=== PATIENT | male | born 1950 | race Caucasian/White ===

== ENCOUNTER → 2017-11-17 | Outpatient (CLI) | payer OTHER ==
[~2017-11-17] MED LIST: ACET-1311 PO; CHOL4POW11 PO; CRFL PO; FOLI1TAB8 PO; GADAVIST IV PRN; MAGN400T6 PO; MOML PO; MULT-506 PO; MULT-878 PO; PANT40TA PO; VANC1CAP3 IV
--- NOTE | 2017-11-17 09:23 | DIAGNOSTIC IMAGING REPORT ---
R LOWER EXT NONJOINT COMBO CLINICAL HISTORY: L osteomyelitis. Nonhealing wound. TECHNIQUE: Multi axial MRI acquisition pre and post gadolinium enhancement COMPARISON STUDY: None FINDINGS: . Limited study technically due to severe patient motion. The appearance overall suggests a generalized cellulitis throughout all major soft tissue structures. Increased signal is noted in the mid to distal aspects of the second and third metatarsals. This is also seen at the distal aspect of the first metatarsal, and potentially the extreme distal aspects of the distal fourth and fifth metatarsal.. Altered signal of the phalanges of the second toe and proximal phalanx of the great toe are noted. Postcontrast images demonstrate moderate enhancement distal aspect of the first metatarsal. Also noted is mild postcontrast enhancement proximal phalanx of the great toe, all phalanges of the second toe, as well as the mid to distal aspects of the second third metatarsal. Slight postcontrast enhancement distal aspect of the fourth and slightly fifth metatarsal present. There is no evidence for drainable abscess or collection. IMPRESSION: 1. Extremely difficult study to interpret due to severe patient motion. 2. Generalized soft tissue cellulitis throughout the foot. 3. No evidence for drainable abscess or collection. 4. Findings suspect for osteomyelitis involving the distal aspect of the first metatarsal, mid and distal aspects of the second and third metatarsals, and the extreme distal aspects of the distal fourth and fifth metatarsal. 5. Study is suspicious for osteomyelitis involving the base of proximal phalanx great toe as well as all phalanges of the second toe. 6. All findings are superimposed upon generalized degenerative changes of the joint spaces throughout. The above report was generated using voice recognition software. It may contain grammatical, syntax or spelling errors. Electronically signed by: Rene Beavers M.D. 11/17/2017 9:22 AM Dictated Date/Time: 11/17/2017 9:12 AM
== END | disposition home or self-care (01) ==
LOC: C.MRI 07:40
PROVIDERS: ATTEND Physician Assistant
DX: L97.909 Non-pressure chronic ulcer of unspecified part of unspecified lower leg with unspecified severity (principal)

== ENCOUNTER → 2017-12-15 | Outpatient (CLI) | payer OTHER ==
[~2017-12-15] MED LIST changes: +ERTA1INJ IV; -GADAVIST IV PRN; +LINE1TAB6 PO; -VANC1CAP3 IV
== END | disposition home or self-care (01) ==
LOC: C.RDSM 19:22
PROVIDERS: ATTEND Physical Medicine & Rehabilitation Sports Medicine
DX: M79.671 Pain in right foot (principal); M79.672 Pain in left foot

== ENCOUNTER 2018-01-17 05:13 | Inpatient (IN) | payer OTHER ==
[2018-01-09 12:01] VITALS: BMI 19.0
--- NOTE | 2018-01-09 12:38 | PAT Medication Instructions ---
Service Date January 09, 2018. Current Home Medication List Acetaminophen (Tylenol), 650 MG PEG TID Folic Acid (Folvite), 1 TAB PEG BID Linezolid (Zyvox), 600 MG PEG DAILY Magnesium Hydroxide (Milk Of Magnesia), 30 ML PEG QD PRN for Constipation Magnesium Oxide (Mag-Ox), 400 MG PEG BID Mirtazapine Soltab (Remeron Soltab), 15 MG PEG HS Multivitamin (Multivitamin), 1 TAB PEG DAILY Pantoprazole (Protonix), 40 MG PEG DAILY Potassium Chloride (Micro-K Ext Rel), 10 MEQ PEG DAILY Saccharomyces Boulardii (Probiotic), 1 CAP PEG DAILY Sucralfate (Carafate), 10 ML PEG QID Medication Instructions For Your Scheduled Surgery - Hold the following medications the morning of surgery: Folic Acid (Folvite), 1 TAB PEG BID Magnesium Hydroxide (Milk Of Magnesia), 30 ML PEG QD PRN for Constipation Magnesium Oxide (Mag-Ox), 400 MG PEG BID Multivitamin (Multivitamin), 1 TAB PEG DAILY Potassium Chloride (Micro-K Ext Rel), 10 MEQ PEG DAILY Saccharomyces Boulardii (Probiotic), 1 CAP PEG DAILY Sucralfate (Carafate), 10 ML PEG QID - The following medications may be taken the morning of surgery with a sip of water: Acetaminophen (Tylenol), 650 MG PEG TID (if needed, can be taken up to four hours before surgery) Linezolid (Zyvox), 600 MG PEG DAILY Pantoprazole (Protonix), 40 MG PEG DAILY - Take the following medications as scheduled the night before surgery: Acetaminophen (Tylenol), 650 MG PEG TID Folic Acid (Folvite), 1 TAB PEG BID Magnesium Hydroxide (Milk Of Magnesia), 30 ML PEG QD PRN for Constipation (if needed) Magnesium Oxide (Mag-Ox), 400 MG PEG BID Mirtazapine Soltab (Remeron Soltab), 15 MG PEG HS Sucralfate (Carafate), 10 ML PEG QID With the exception of morning meds listed, nothing via PEG tube after midnight If you have any questions please call us at [phone] or [phone] or [phone]
[2018-01-09 14:19] LABS: BASO % 0.5 %; BASO ABS # 0.03 K/uL (0-0.2); EOS % 6.4 %; EOS ABS # 0.41 K/uL (0-0.5); HEMATOCRIT 22.1 % (42-52); HEMOGLOBIN 7.3 g/dL (14.0-18.0); IG# 0.01 K/uL (0.00-0.02); LYMPH % 16.6 %; LYMPH ABS # 1.06 K/uL (1.2-3.4); MEAN CELL VOLUME 92.9 fL (80-100); MEAN CORPUSCULAR HEMOGLOBIN 30.7 pg (25-34); MEAN PLATELET VOLUME 8.8 fL (7.4-10.4); MONO % 11.3 %; MONO ABS # 0.72 K/uL (0.11-0.59); NEUT ABS # 4.14 K/uL (1.4-6.5); PLATELET COUNT 132 K/uL (130-400); RED CELL DISTRIBUTION WIDTH CV 20.6 % (11.5-14.5); RED CELL DISTRIBUTION WIDTH SD 68.2 fL (36.4-46.3); WHITE BLOOD COUNT 6.37 K/uL (4.8-10.8)
[2018-01-09 14:29] LABS: CREATININE 1.02 mg/dl (0.60-1.40); POTASSIUM 5.1 mmol/L (3.5-5.1)
[2018-01-09 14:32] LABS: PTT PATIENT 28.7 SECONDS (21.0-31.0)
--- NOTE | 2018-01-10 09:43 | History and Physical ---
History & Physical Date of Service January 10, 2018. History & Physical HISTORY & PHYSICAL Name: RICHIE ANNE : 1950 Date of Admission 01/17/2018 DATE OF SURGERY: 01/17/2018 ATTENDING PHYSICIAN: Dr. Vargas CHIEF COMPLAINT: Right foot wound/osteomyelitis. HISTORY OF PRESENT ILLNESS: The patient is here today for preoperative history and physical. He was seen and evaluated by Dr. Vargas. He is a poor historian and currently living at [facility]. He was referred to Dr. Vargas by the [facility] for evaluation of his right foot. He does not know exactly how long he has had a problem with his right foot. He does not think that he has had any injury. He states that it has been ongoing for quite some time. He denies any diabetes or peripheral vascular disease. He states that he has just had this for a long time. He is currently on a PEG tube as well as has an indwelling Fields catheter. He states that he has been going to the outpatient wound clinic for dressing changes. He is here for evaluation with Dr. Vargas. He did have an evaluation by V[facility] Surgery, and they did diagnose him with peripheral arterial disease and osteomyelitis. Surgical intervention was recommended by them. He is here for evaluation with Dr. Vargas, and his surgical intervention was discussed. He has agreed to proceed with surgery. He is scheduled for a right foot transmetatarsal amputation versus below-knee amputation with Dr. Vargas at the [facility] on January 17, 2018. PAST MEDICAL HISTORY: 1. Osteomyelitis, right foot. 2. Acute kidney failure. 3. Dysphagia. 4. Generalized weakness. 5. Hypertension. 6. Peripheral vascular disease. 7. Esophageal obstruction. 8. Nicotine dependence with chewing tobacco. 9. Gastroesophageal reflux disease without esophagitis. 10. Major depressive disorder. 11. Anxiety disorder. 12. Iron-deficiency anemia. 13. Benign prostatic hyperplasia. 14. Ambulatory dysfunction. 15. History of enterocolitis due to Clostridium difficile. 16. Pressure sores of his left heel, sacral region, and right foot. 17. Adult failure to thrive. 18. Cachexia. 19. History of pneumonia. 20. Indwelling PEG tube and Fields catheter. CURRENT MEDICATIONS: 1. Carafate 1 gram per 10 mL, take 10 mL via PEG tube 3 times a day. 2. Daily vitamin via PEG tube daily. 3. Ertapenem 1 gram IV daily. 4. Folic acid 1 tab by mouth twice daily. 5. Jevity 1.5 calorie liquid, infuse at 60 mL an hour, on at 8 p.m., off at 6 a.m. daily via PEG tube. 6. Linezolid 600 mg 1 tablet via PEG tube twice a day. 7. Mag-Ox 400 mg via PEG tube twice daily. 8. Mirtazapine 15 mg 1 tablet via PEG tube at bedtime daily for depression. 9. Protonix 40 mg via PEG tube daily. 10. Saccharomyces boulardii 250 mg 1 capsule via PEG tube twice daily x8 weeks , started on December 01, 2017, ends on January 23, 2018. 11. Tylenol 325 mg 2 tablets via PEG tube 3 times a day. 12. Milk of magnesia 30 mL by mouth as needed for constipation. ALLERGIES: He has no known drug allergies. SOCIAL HISTORY: Currently resides at [facility]. He denies any tobacco, alcohol, or drug use. He states that he does get around with a wheelchair. He is able to ambulate occasionally. FAMILY HISTORY: unobtainable as the patient is a poor historian. REVIEW OF SYSTEMS: He denies any recent cough, cold, fevers, chills, flu-like symptoms. He denies any chest pain or shortness of breath. Denies any numbness or tingling. He denies any abdominal pain. He says he occasionally gets some diarrhea but nothing recently. Denies any urinary symptoms. Denies any bleeding or clotting disorders. PHYSICAL EXAM: General: He is alert and oriented x3. He is in no acute distress. He is resting on the table comfortably. He has normal mood and affect. Height is 6 feet, weight is 144 pounds. HEENT: Head is atraumatic, normocephalic. Eyes: Extraocular movements intact. Pupils equal, round, and reactive to light. Sclerae are normal. Hearing is grossly normal. TMs are clear with normal light reflex. Nose, nares are patent bilaterally. Oropharynx is clear. Mucous membranes moist. Poor dentition with missing teeth and what appear to be cavities. No abscesses. Uvula midline. Neck: Supple. No lymphadenopathy. Nontender to palpation. Heart is regular rate and rhythm. Normal S1, S2. No murmurs appreciated. Lungs are clear to auscultation bilaterally. Abdomen is soft, nontender, nondistended. PEG tube is visible. He has a PICC line in his right upper extremity. Exam of his right foot, ankle dorsiflexion is to neutral just beyond, both with the knee flexed and extended. He has about a degree of flexion contracture of his knee, can bend to about 120 degrees. He is markedly thin. Pedal pulses are not palpable. There are scars of varying degrees of healing including over the base of the 5th metatarsal which appear to be superficial and over the distal portion of the 5th metatarsal plantarly and dorsally over the medial foot. He has a large 2 cm ulceration in the central forefoot with exposed bone. He reports intact sensation. His capillary refill looks like less than 2 seconds. He can flex and extend with normal or nearly normal strength. RADIOLOGY IMAGES: X-rays 3 views of both feet are obtained. The left foot looks normal except for vascular calcifications. There is no fracture. Right foot shows osteomyelitis of the 2nd and 3rd tarsometatarsal articulations, radiolucency of the 1st, 4th, and 5th toes as well which could be related to osteomyelitis or vascular calcification. No fracture noted. MRI of his right foot shows osteomyelitis of the 2nd and 3rd toes and probable osteomyelitic changes of the toes 1, 4, and 5. IMPRESSION: Right foot osteomyelitis. PLAN: The patient is scheduled for right foot transmetatarsal amputation versus below-knee amputation with Dr. Vargas at the [facility] on January 17, 2018. Risks and complications of surgery were explained to the patient, include but are not limited to infection, pain, bleeding, scarring, nerve and blood vessel damage, wound problems, weakness, stiffness, incomplete relief of symptoms, blood clots, embolisms, heart attack, stroke, and . All questions were answered. Informed consent was obtained today. We will have him see preadmission testing later today which we will obtain a preoperative CBC, sed rate, CRP, BMP, and EKG. He should continue the IV antibiotics. He can stop going to the [facility] but continue daily dressing changes of his right foot. He can weight bear as tolerated, use the postop shoe to assist with ambulation. He should be n.p.o. after midnight the night before surgery. Instructions were provided to the [facility] to follow for the use of CHG cloths as well as instructions on calling the day before to get the surgery arrival time. All questions were answered today. He will be admitted postoperatively. We will consult the hospitalist for medical management during his inpatient stay. He will most likely return to [facility] after surgery. He will also probably need an infectious disease consult while an inpatient to further manage his antibiotics. All questions were answered today. He knows to call with any further problems, questions, or concerns.
[~2018-01-17] VITALS: Ht 182.9 cm; Wt 65.1 kg
[~2018-01-17 05:13] MED LIST changes: +ACET-1311 PEG; -ACET-1311 PO; -CHOL4POW11 PO; +CRFL PEG; -CRFL PO; -ERTA1INJ IV; +FOLI1TAB8 PEG; -FOLI1TAB8 PO; +LINE1TAB6 PEG; -LINE1TAB6 PO; +MAGN400T6 PEG; -MAGN400T6 PO; +MIRT15TA2 PEG; +MOML PEG; -MOML PO; +MULT-506 PEG; -MULT-506 PO; -MULT-878 PO; +PANT40TA PEG; -PANT40TA PO; +POTA10CA28 PEG; +SACC250C11 PEG
[2018-01-17 05:47] LABS: HEMATOCRIT 31.2 % (42-52); HEMOGLOBIN 10.3 g/dL (14.0-18.0); RED CELL DISTRIBUTION WIDTH CV 19.3 % (11.5-14.5); RED CELL DISTRIBUTION WIDTH SD 64.2 fL (36.4-46.3); WHITE BLOOD COUNT 8.82 K/uL (4.8-10.8)
[2018-01-17] MEDS ORDERED: CEFAZOLIN 1000MG IV PUSH 7.5 ML IV SCH (06:00)
[2018-01-17 06:02] VITALS: BP 128/99; PULSE 67; TEMP 36.6; O2SAT 98; BMI 19.0
[2018-01-17] MEDS ORDERED: NUTR-673 GT (06:03)
[2018-01-17 06:09] LABS: CALCIUM 8.6 mg/dl (8.5-10.1); CREATININE 0.93 mg/dl (0.60-1.40); POTASSIUM 4.3 mmol/L (3.5-5.1)
[2018-01-17 06:16] LABS: MEAN PLATELET VOLUME 8.7 fL (7.4-10.4); PLATELET COUNT 99 K/uL (130-400)
[2018-01-17] MEDS ORDERED: [UNRECOGNIZED DRUG - OTHER] IV (06:17)
[2018-01-17] MEDS ORDERED: FENTANYL CITRATE INJ 50 MCG/1 ML 2 ML VIAL ONE ×2 (06:24→14:11)
[2018-01-17] MEDS ORDERED: MIDAZOLAM HCL 1 MG/ML 2ML VIAL ONE ×2 (06:25→14:11)
[2018-01-17] MEDS ORDERED: PROPOFOL IV EMULSION 10 MG/ML 20 ML VIAL ONE ×2 (06:29→14:11)
[2018-01-17] MEDS ORDERED: LIDOCAINE HCL 2% 2 ML VIAL (20MG/ML) ONE ×2 (06:29→14:11)
[2018-01-17] MEDS ORDERED: CEFAZOLIN SOD 1000MG/7.5 ML IV PUSH ONE (06:44)
--- NOTE | 2018-01-17 06:44 | History & Physical Bridge Note ---
H&P Re-Evaluation Bridge Note: I have examined the patient, reviewed the History & Physical and in the interval since the performance of the History & Physical I have noted the following changes of clinical significance: AM labs acceptable. plts 97k, hct 30.spoke w dr kee yesterday and pt optimized and acceptable.No changes noted
[2018-01-17] MEDS ORDERED: LIDOCAINE HCL 1% 20 ML VIAL ONE ×2 (06:58→14:04)
[2018-01-17] MEDS ORDERED: BUPIVACAINE 0.5 % 5 MG/1 ML MPF 30ML VIAL ONE ×2 (06:59→14:06)
[2018-01-17] MEDS ORDERED: EpINEphrine INJ 1MG/ML AMP 1 MG/ML AMP ONE (07:00)
[2018-01-17] MEDS ORDERED: BACITRACIN 50000 UNIT VIAL ONE ×2 (07:00→14:09)
[2018-01-17] MEDS ORDERED: EpINEphrine HCL INJ 1 MG/ML 1ML SYRINGE ONE (14:07)
[2018-01-17] MEDS ORDERED: GLYCOPYRROLATE INJ 0.2 MG/ML VIAL ONE (14:11)
[2018-01-17] MEDS ORDERED: DEXAMETHASONE SOD INJ 4 MG/ML VIAL ONE (14:11)
[2018-01-17] MEDS ORDERED: SUCCINYLCHOLINE CHLORIDE 20 MG/ML 10 ML VIAL IV ONE (14:11)
[2018-01-17] MEDS ORDERED: NEOSTIGMINE METHYLSULFATE 5 MG/5 ML SYR ONE (14:11)
[2018-01-17] MEDS ORDERED: ONDANSETRON INJ 2 MG/ML 2 ML VIAL ONE (14:11)
[2018-01-17] MEDS ORDERED: EpHEDrine SULFATE INJ 50 MG/ML AMP ONE (14:11)
[2018-01-17] MEDS ORDERED: PHENYLEPHRINE HCL INJ 10 MG/ML VIAL ONE (14:11)
[2018-01-17] MEDS ORDERED: POVIDONE-IODINE OP SOLN 30 ML BTL ONE (14:58)
[2018-01-17] MEDS ORDERED: ONDANSETRON INJ 2 MG/ML 2 ML VIAL IV PRN ×2 (16:30→17:00)
[2018-01-17] MEDS ORDERED: ATROPINE SULFATE 0.1 MG/ML 5ML SYR IV PRN (16:30)
[2018-01-17] MEDS ORDERED: HYDROmorphone INJ 2 MG/ML SYR/VIAL IV PRN (16:30)
[2018-01-17] MEDS ORDERED: LABETALOL HCL IV 5 MG/ML 20ML IV PRN (16:30)
--- NOTE | 2018-01-17 16:38 | [facility] Post Operative Brief Note ---
Immediate Operative Summary Operative Date January 17, 2018. Pre-Operative Diagnosis right foot osteomyelitis Post-Operative Diagnosis right foot osteomyelitis Procedure(s) Performed transmetatasrsal amputation Surgeon Dr. Guido Vargas Diversional Therapist'S Assistant Surgeon(s) Kemar Renee-Fellow Estimated Blood Loss 50 Findings Consistent with Post-Op Diagnosis Specimens A: Right foot metatarsals, bone and tissue Micro- #1:Right foot tissue swap-Culture and sensitivity, gram stain, anaerobic, aerobic #2: Right foot bone-Culture and sensitivity, gram stain, anaerobic, aerobic Drains None Anesthesia Type General Complication(s) none Disposition Accompanied Pt To Recover: no Disposition: Recovery Room / PACU
--- NOTE | 2018-01-17 16:58 | [facility] Operative Report ---
Operative Report Operative Date January 17, 2018. Pre-Operative Diagnosis right foot osteomyelitis Post-Operative Diagnosis right foot osteomyelitis Procedure(s) Performed transmetatasrsal amputation Surgeon Dr. Guido Vargas Rider Ticket Worker Surgeon(s) Kemar Renee-Fellow Estimated Blood Loss 50ml Findings Osteomyelitis of the second and third metatarsals. Multiple plantar ulcerations. Specimens A: Right foot metatarsals, bone and tissue Micro- #1:Right foot tissue swap-Culture and sensitivity, gram stain, anaerobic, aerobic #2: Right foot bone-Culture and sensitivity, gram stain, anaerobic, aerobic Drains None Anesthesia Type General Complication(s) none Disposition no Recovery Room / PACU Indications Patient's a 67-year-old gentleman with malnourishment and general debilitation. He currently lives in a fpc. The ulceration on the plantar aspect of his right foot for an unknown but chronic length of time. Radiographs demonstrate bony destruction consistent with osteomyelitis. Preoperative consultation has been obtained with Dr. Mack to determine appropriate amputation level. Circulation at this point seems to be appropriate to support a transmetatarsal amputation. The patient is also consented for a below-knee amputation. He has been seen by his medical doctor Dr. Pathak and also is a patient in the ID clinic. He remains on chronic antibiotics. He has a PEG tube. Description of Procedure Informed consent obtained. Patient identified as Brenden mueller. He identified the operative site as the right foot. I marked with my initials. Preop surgical timeout was performed. Preop dose of IV antibiotics was given. He is also on chronic antibiotics. He was taken to the operating room positioned supine on the operating room table. A tourniquet was applied to the right thigh. The right leg was pre-scrub and then prepped and draped in the usual sterile fashion with Betadine. He had a small 1 cm ulceration at the base of the fifth metatarsal. During the surgery this was debrided and found to be full-thickness through the skin and down to the fascia but not through the fascia there was no exposed bone and had good granulation around the margins. There was a similar ulcer at the head of the fifth metatarsal. There were 2 large ulcers 1 over the second and third metatarsals plantarly about 2-3 cm in diameter with exposed bone. There is another one more medial over the first metatarsal head which was partial thickness down through the dermis into the deeper tissues but without exposed bone about 2 cm in diameter. The patient did not have palpable pulses. DVT prophylaxis with foot pumps. Postoperatively we may consider placing him on something like Lovenox. The patient was scheduled for the first thing this morning however he used chewing tobacco in his surgery had to be delayed 6 hours. He also has chronic anemia. He required 2 units of red blood cells at his fpc preoperatively. His hematocrit was 10 platelet count 97. I spoke with Dr. Pathak and it was felt that he was appropriate to proceed. The limb was exsanguinated with gravity and the tourniquet inflated to 250 mmHg. A fishmouth type incision was made just proximal to the ulcers on the plantar aspect of the foot and just proximal to the webspace dorsally. A full- thickness flap was created dorsally down to the level of the extensor tendons and then raised proximally. Fluoroscopic guidance was utilized then to amputate the first metatarsal at about its midportion and then each of the subsequent metatarsals were shortened by 2-3 mm. I went back and recut 2 more millimeters off of the first metatarsal but otherwise he had a good cascade. Fluoroscopic guidance was utilized and access representative images were obtained. There was a significant bleeding of the tissues which seem to be better after the tourniquet was let down. The dorsalis pedis artery was cauterized however this required a double ligation with 2-0 silk suture. Otherwise meticulous hemostasis was achieved with electrocautery and direct pressure. The bones were beveled around the margins and did not have any sharp spicules or protuberances. The plantar skin flap was debrided using a rongeur removing any unhealthy tissue. After the metatarsals had been resected the amputation was completed working from the plantar aspect. The toes are then sent for specimen. Culture swab of the plantar ulcer was obtained and bone from the second and third metatarsals was also sent for culture. The extensor tendons were amputated just proximal to the bone resections. The flexor tendons were drawn into the wound and amputated as far proximal as possible. The plantar digital nerves and arteries were cauterized and amputated as far proximal as possible as encountered. The tourniquet was let down after about 30 minutes of inflation. Betadine lavage was performed followed by pulsed lavage. The skin flaps fit perfectly. The plantar flap was brought up and using a combination of 2-0 nylon and 0 Prolene with simple stitches and near far far near stitches the closure was performed in a tension-free fashion. 20 cc of a mixture of 0.5% Marcaine and 1 % lidocaine were injected sural saphenous superficial and deep peroneal and posterior tibial nerve blocks. It was cleaned with wet and dry sponges. Xeroform 4 x 4's multiple ABDs including padding of the heel were applied followed by loosely applied cast padding and a compressive Tristan wrap with care to avoid any pressure on the skin. Patient is awake from anesthesia without difficulty and taken to the recovery room in stable condition. The resected forefoot was sent for specimen. Cultures were as mentioned above. Counts were correct in the case. Blood loss was approximately 50 cc. At the conclusion operation there is no unavailable to speak to. Patient will be nonweightbearing. Medicine and ID will be consulted to assist in his management along with nutrition. I attest to the content of the Intraoperative Record and any orders documented therein. Any exceptions are noted below.
[2018-01-17] MEDS ORDERED: MAGNESIUM HYDROXIDE SUSP 30 ML UDC PEG PRN (17:00)
[2018-01-17] MEDS ORDERED: ACETAMINOPHEN 325 MG TAB PEG PRN (17:00)
[2018-01-17] MEDS ORDERED: DiphenhydrAMINE HCL 50 MG/ML VIAL IV PRN (17:00)
[2018-01-17] MEDS ORDERED: METOCLOPRAMIDE HCL INJ 5 MG/ML 2 ML VIAL IV PRN (17:00)
--- NOTE | 2018-01-17 17:03 | Anesthesiology Progress Note ---
Anesthesia Post Op Note Date & Time January 17, 2018 at 17:03 Vital Signs Pain Intensity: 0 Vital Signs Past 12 Hours Date Time Temp Pulse Resp B/P (MAP) Pulse Ox O2 Delivery O2 Flow Rate FiO2 01/17/18 06:02 36.6 67 18 128/99 98 Room Air Notes Mental Status: alert / awake / arousable, participated in evaluation Pt Amnestic to Procedure: Yes Nausea / Vomiting: adequately controlled Pain: adequately controlled Airway Patency, RR, SpO2: stable & adequate BP & HR: stable & adequate Hydration State: stable & adequate Anesthetic Complications: no major complications apparent
[2018-01-17] MEDS ORDERED: MoRPHine SULFATE 4 MG/ML 1 ML CARP\\VIAL IV PRN (17:15)
[2018-01-17] MEDS ORDERED: OXYCODONE HCL IR 5 MG TAB (IMMEDIATE RELEASE) GT PRN (17:15)
[2018-01-17 17:57] LABS: HEMATOCRIT 26.3 % (42-52); HEMOGLOBIN 8.7 g/dL (14.0-18.0); MEAN CORPUSCULAR HEMOGLOBIN 30.1 pg (25-34); MEAN CORPUSCULAR HGB CONC 33.1 g/dl (32-36); RED CELL DISTRIBUTION WIDTH CV 19.1 % (11.5-14.5); RED CELL DISTRIBUTION WIDTH SD 63.7 fL (36.4-46.3); WHITE BLOOD COUNT 9.25 K/uL (4.8-10.8)
[2018-01-17 18:04] LABS: INR 1.1 (0.9-1.1)
[2018-01-17 18:14] LABS: CALCIUM 8.6 mg/dl (8.5-10.1); CREATININE 0.86 mg/dl (0.60-1.40); MEAN PLATELET VOLUME 8.4 fL (7.4-10.4); PLATELET COUNT 94 K/uL (130-400)
[2018-01-17 18:15] VITALS: BP 94/57; PULSE 86; TEMP 36.3; O2SAT 100; O2SAT 98
[2018-01-17 18:15] LABS: ALBUMIN 2.3 gm/dl (3.4-5.0); CALCIUM 8.5 mg/dl (8.5-10.1); CREATININE 0.88 mg/dl (0.60-1.40); POTASSIUM 3.6 mmol/L (3.5-5.1); POTASSIUM 3.7 mmol/L (3.5-5.1)
[2018-01-17 18:18] LABS: TOTAL PROTEIN 5.9 gm/dl (6.4-8.2)
[2018-01-17 19:15] VITALS: BP 102/66; PULSE 97; TEMP 36.5; O2SAT 97
--- NOTE | 2018-01-17 19:34 | DIAGNOSTIC IMAGING REPORT ---
INTRAOPERATIVE RIGHT FOOT 3 VIEWS CLINICAL HISTORY: RT TRANSMETATARSAL AMP COMPARISON STUDY: 12/15/2017 FINDINGS: 3 intraoperative fluoroscopic spot images are provided for interpretation. 18 seconds of fluoroscopic time was utilized. There are postsurgical changes of a first through fifth transmetatarsal amputation. Extensive vascular calcifications are evident. IMPRESSION: Postsurgical changes of a transmetatarsal amputation Electronically signed by: Timoteo Ryan M.D. 01/17/2018 7:33 PM Dictated Date/Time: 01/17/2018 7:32 PM
[2018-01-17 20:15] VITALS: BP 89/48; PULSE 91; TEMP 36.4; O2SAT 99
[2018-01-17] MEDS ORDERED: FIBERSOURCE HN 1000ML BAG GT SCH (21:00)
[2018-01-17] MEDS: MAGNESIUM OXIDE 400 MG TAB PEG SCH (21:26)
[2018-01-17] MEDS: DOCUSATE SODIUM 100 MG/10 ML UDC GT SCH (21:26)
[2018-01-17] MEDS: MIRTAZAPINE SOLTAB 15 MG PO SCH (21:27)
[2018-01-17] MEDS: SUCRALFATE 1 GM/10 ML UDC PEG SCH (21:27)
[2018-01-17] MEDS: D5W AND 1/2NSS 1,000 ML IV SCH (21:34)
[2018-01-17 23:52] VITALS: BP 75/36; PULSE 85; TEMP 36.8; O2SAT 100
--- NOTE | 2018-01-18 00:29 | Medical Consult ---
Consultation Date of Consultation: January 18, 2018. Attending Physician: Guido Vargas M.D. Reason for Consultation: Post op Medical Management History of Present Illness 67 years old male with past medical history of right foot osteomyelitis, hypertension, peripheral vascular disease, ambulatory dysfunction, BPH, chronic indwelling Brandon catheter, status post right foot transmetatarsal amputation for right foot osteomyelitis by Dr. Vargas. [facility] hospitalist was consult for medical management. Patient is resting in bed with no distress. He said his pain is under control. Denies any chest pain, palpitation, dizziness, fever, shortness of breath and chills. Past Medical/Surgical History PAST MEDICAL HISTORY: 1. Osteomyelitis, right foot. 2. Acute kidney failure. 3. Dysphagia. 4. Generalized weakness. 5. Hypertension. 6. Peripheral vascular disease. 7. Esophageal obstruction. 8. Nicotine dependence with chewing tobacco. 9. Gastroesophageal reflux disease without esophagitis. 10. Major depressive disorder. 11. Anxiety disorder. 12. Iron-deficiency anemia. 13. Benign prostatic hyperplasia. 14. Ambulatory dysfunction. 15. History of enterocolitis due to Clostridium difficile. 16. Pressure sores of his left heel, sacral region, and right foot. 17. Adult failure to thrive. 18. Cachexia. 19. History of pneumonia. 20. Indwelling PEG tube and Brandon catheter. Social History Smoking Status: Never Smoker Drug Use: none Marital Status: single Occupation Status: retired Allergies Coded Allergies: No Known Allergies (Unverified , 01/17/18) Current Inpatient Medications Current Inpatient Medications Medications (Trade) Dose Ordered Sig/Pola Route Start Time Stop Time Status Last Admin Dose Admin Acetaminophen (Tylenol Tab) 650 mg Q6H PRN PEG 01/17/18 17:00 02/16/18 16:59 Diphenhydramine HCl (Benadryl Inj) 25 mg Q8 PRN IV 01/17/18 17:00 02/16/18 16:59 Metoclopramide HCl (Reglan Inj) 10 mg Q6H PRN IV 01/17/18 17:00 02/16/18 16:59 Ondansetron HCl (Zofran Inj) 4 mg Q6H PRN IV 01/17/18 17:00 02/16/18 16:59 Docusate Sodium (coLACE SYRUP) 100 mg BID GT 01/17/18 21:00 6/8/18 20:59 01/17/18 21:26 100 MG Dextrose/Sodium Chloride 1,000 ml @ 75 mls/hr [id number] IV 01/17/18 19:50 02/16/18 19:49 01/17/18 21:34 75 MLS/HR Enteral Nutritional Formula (Fibersource Hn) 1,000 ml QPM GT 01/17/18 21:00 02/16/18 20:59 01/17/18 21:27 1,000 ML Folic Acid (Folvite Tab) 1 mg BID PEG 01/17/18 21:00 02/16/18 20:59 01/17/18 21:26 1 MG Linezolid (Zyvox Tab) 600 mg DAILY GT 01/18/18 09:00 03/01/18 08:59 Magnesium Hydroxide (Milk Of Magnesia Susp) 30 ml QD PRN PEG 01/17/18 17:00 02/16/18 16:59 Magnesium Oxide (Mag-Ox Tab) 400 mg BID PEG 01/17/18 21:00 02/16/18 20:59 01/17/18 21:26 400 MG Mirtazapine (Remeron Solutab) 15 mg HS PO 01/17/18 21:00 02/16/18 20:59 01/17/18 21:27 15 MG Lansoprazole (Prevacid Solutab) 30 mg DAILY GT 01/18/18 09:00 02/17/18 08:59 Potassium Chloride (Mandy Ciel Elix) 10 meq DAILY GT 01/18/18 09:00 02/17/18 08:59 Sucralfate (Carafate Susp) 1 gm QID PEG 01/17/18 21:00 02/16/18 20:59 01/17/18 21:27 1 GM Oxycodone HCl (Roxicodone Immediate Rel Tab) 1 TABLET FOR PAIN RATING... Q4H PRN GT 01/17/18 17:15 01/31/18 17:14 Morphine Sulfate (MoRPHine SULFATE INJ) 2 mg for pain less than ... Q4HWA PRN IV 01/17/18 17:15 01/31/18 17:14 Ertapenem 1 gm/ Sodium Chloride 50 ml @ 100 mls/hr DAILY IV 01/18/18 09:00 6/21/18 08:59 Review of Systems Constitutional: No fever, No chills Eyes: No discharge ENT: No nasal symptoms, No sore throat Respiratory: No cough, No sputum, No shortness of breath Cardiovascular: No chest pain, No palpitations Abdomen: No pain, No nausea, No vomiting Musculoskeletal: No calf pain Genitourinary - Male: + problem reported (brandon catheter in place), No hematuria Neurologic: No vertigo Psychiatric: No substance abuse Hematologic / Lymphatic: No abnormal bleeding/bruising Integumentary: No rash, No itch Physical Exam Date Time Temp Pulse Resp B/P (MAP) Pulse Ox O2 Delivery O2 Flow Rate FiO2 01/17/18 23:52 36.8 85 14 75/36 (49) 100 Room Air 01/17/18 20:15 36.4 91 16 89/48 (62) 99 Room Air 01/17/18 19:25 Nasal Cannula 2.0 01/17/18 19:15 36.5 97 17 102/66 (78) 97 Room Air 01/17/18 18:15 98 Nasal Cannula 2.0 01/17/18 18:15 36.3 86 18 94/57 (69) 100 Nasal Cannula 2.0 01/17/18 17:55 79 14 96/45 100 Nasal Cannula 2 01/17/18 17:40 77 15 87/49 100 Nasal Cannula 2 01/17/18 17:25 36.1 83 16 87/49 100 Nasal Cannula 2 01/17/18 17:15 83 17 98/53 100 Nasal Cannula 2 01/17/18 17:05 85 20 92/52 100 Nasal Cannula 2 01/17/18 16:55 85 16 86/48 100 Oxymask 10 01/17/18 16:45 36.0 88 13 125/59 100 Oxymask 10 01/17/18 06:02 36.6 67 18 128/99 98 Room Air General Appearance: no apparent distress Head: normocephalic, atraumatic Eyes: EOMI ENT: normal ENT inspection Neck: no JVD, trachea midline Respiratory/Chest: no respiratory distress, no accessory muscle use Cardiovascular: regular rate, rhythm, no JVD Abdomen/GI: normal bowel sounds, non tender Back: no CVA tenderness Extremities/Musculoskelatal: no calf tenderness, + pertinent finding (Right foot amputation, wrap with dressing) Neurologic/Psych: alert, normal mood/affect Skin: warm/dry, no rash Laboratory Results Last 24 Hours Test 01/17/18 05:33 01/17/18 17:40 White Blood Count 8.82 K/uL 9.25 K/uL Red Blood Count 3.43 M/uL 2.89 M/uL Hemoglobin 10.3 g/dL 8.7 g/dL Hematocrit 31.2 % 26.3 % Mean Corpuscular Volume 91.0 fL 91.0 fL Mean Corpuscular Hemoglobin 30.0 pg 30.1 pg Mean Corpuscular Hemoglobin Concent 33.0 g/dl 33.1 g/dl RDW Standard Deviation 64.2 fL 63.7 fL RDW Coefficient of Variation 19.3 % 19.1 % Platelet Count 99 K/uL 94 K/uL Mean Platelet Volume 8.7 fL 8.4 fL Platelet Estimate DECREASED Sodium Level 134 mmol/L 136 mmol/L Potassium Level 4.3 mmol/L 3.7 mmol/L Chloride Level 99 mmol/L 102 mmol/L Carbon Dioxide Level 31 mmol/L 27 mmol/L Anion Gap 4.0 mmol/L 7.0 mmol/L Blood Urea Nitrogen 18 mg/dl 16 mg/dl Creatinine 0.93 mg/dl 0.88 mg/dl Est Creatinine Clear Calc Drug Dose 71.6 ml/min 75.7 ml/min Estimated GFR () 98.1 103.0 Estimated GFR (Non- 84.6 88.9 BUN/Creatinine Ratio 19.0 17.6 Random Glucose 111 mg/dl 102 mg/dl Calcium Level 8.6 mg/dl 8.5 mg/dl Prothrombin Time 11.5 SECONDS Prothromb Time International Ratio 1.1 Total Bilirubin 0.7 mg/dl Direct Bilirubin 0.2 mg/dl Aspartate Amino Transf (AST/SGOT) 13 U/L Alanine Aminotransferase (ALT/SGPT) 14 U/L Alkaline Phosphatase 107 U/L Total Protein 5.9 gm/dl Albumin 2.3 gm/dl Globulin 3.6 gm/dl Albumin/Globulin Ratio 0.6 Assessment & Plan Right foot osteomyelitis S/P right foot transmetatarsal amputation by Dr. Vargas Pain control as per ortho Monitor H/H Incentive spirometry On Invanz ID consulted HTN Not on any BP med BP in the the low side Monitor BP Continue IVF Anemia Acute blood loss due to post op Hgb 8.7 Monitor H/H DVT px as per Ortho CODE STATUS FULL CODE
[2018-01-18 03:28] VITALS: BP 86/43; PULSE 86; TEMP 37; O2SAT 99
[2018-01-18 06:53] VITALS: BP 95/47; PULSE 93; TEMP 37.2; O2SAT 99
[2018-01-18 06:55] LABS: HEMATOCRIT 21.6 % (42-52); HEMOGLOBIN 7.3 g/dL (14.0-18.0); MEAN CELL VOLUME 91.1 fL (80-100); MEAN CORPUSCULAR HEMOGLOBIN 30.8 pg (25-34); MEAN CORPUSCULAR HGB CONC 33.8 g/dl (32-36); RED CELL DISTRIBUTION WIDTH SD 63.3 fL (36.4-46.3); WHITE BLOOD COUNT 10.22 K/uL (4.8-10.8)
[2018-01-18 07:03] LABS: INR 1.1 (0.9-1.1)
[2018-01-18 07:24] LABS: MEAN PLATELET VOLUME 8.2 fL (7.4-10.4); PLATELET COUNT 94 K/uL (130-400)
--- NOTE | 2018-01-18 08:42 | Orthopedic Progress Note ---
Orthopedic Progress Note Date of Service January 18, 2018. Subjective Post OP Day: 1 Reports: feeling well, Denies: complaints, chest pain, SOB, nausea / vomiting, light headedness, calf pain Additional Notes: Denies pain in right foot; propped up in bed, eating breakfast. Nursing reports that she was in there this morning, he had unhooked his IV, leaking all over the floor. He had his bed elevated as high as it could go and leaning over the edge. Objective calves soft nontender, dressing C/D/I, A&O x3 Right foot dressings intact, encouraged elevation, heel off of bed. Dressings left in place. Date Time Temp Pulse Resp B/P (MAP) Pulse Ox O2 Delivery O2 Flow Rate FiO2 01/18/18 06:53 37.2 93 15 95/47 (63) 99 Room Air 01/18/18 03:28 37.0 86 14 86/43 (57) 99 Room Air 01/18/18 00:10 Room Air 01/17/18 23:52 36.8 85 14 75/36 (49) 100 Room Air 01/17/18 20:15 36.4 91 16 89/48 (62) 99 Room Air 01/17/18 19:25 Nasal Cannula 2.0 01/17/18 19:15 36.5 97 17 102/66 (78) 97 Room Air 01/17/18 18:15 98 Nasal Cannula 2.0 01/17/18 18:15 36.3 86 18 94/57 (69) 100 Nasal Cannula 2.0 01/17/18 17:55 79 14 96/45 100 Nasal Cannula 2 01/17/18 17:40 77 15 87/49 100 Nasal Cannula 2 01/17/18 17:25 36.1 83 16 87/49 100 Nasal Cannula 2 01/17/18 17:15 83 17 98/53 100 Nasal Cannula 2 01/17/18 17:05 85 20 92/52 100 Nasal Cannula 2 01/17/18 16:55 85 16 86/48 100 Oxymask 10 01/17/18 16:45 36.0 88 13 125/59 100 Oxymask 10 Laboratory Results 24 Hours: Test 01/17/18 17:40 01/18/18 06:33 Hematocrit 26.3 % 21.6 % Hemoglobin 8.7 g/dL 7.3 g/dL Prothromb Time International Ratio 1.1 1.1 Prothrombin Time 11.5 SECONDS 11.4 SECONDS Assessment & Plan Assessment: POD 1 - right foot transmetatarsal amputation. Plan: OOB with assistance, NWB Right foot elevate right foot when in bed for swelling. Heel precautions. Diet as ordered Appreciate medicine input. Will discuss H/H with Dr. Vargas. Preoperatively he was 5.9, s/p 2 unit transfusion on Monday01/15/18. After discussion with Dr. Vargas, he's fine with his H/H today, as long as he is stable, will continue to monitor and recheck in AM. Hypotensive thru the night, but medicine recommended continued IV fluids. Will order B/L thigh SCD's for DVT prophylaxis. ID Consult pending. MRSA screen negative. Continue Linezolid. Cultures still pending. PT/OT as ordered. SS for placement - patient will most likely need 3 day stay and then will be able to return to [facility]. Will discuss findings with Dr. Vargas. All questions answered. Discharge Planning Discharge Planning: retirement facility
[2018-01-18] MEDS: DOCUSATE SODIUM 100 MG/10 ML UDC GT SCH ×2 (09:00→20:23)
[2018-01-18] MEDS ORDERED: [UNRECOGNIZED DRUG - OTHER] IV SCH (09:00)
[2018-01-18] MEDS ORDERED: ERTAPENEM IV 1 GM in SODIUM CHLOR 0.9% AD-VAN 50ML IV SCH (09:00)
[2018-01-18] MEDS: D5W AND 1/2NSS 1,000 ML IV SCH ×2 (10:00→22:12)
[2018-01-18] MEDS: LINEZOLID 600 MG TAB GT SCH (10:00)
[2018-01-18] MEDS: SUCRALFATE 1 GM/10 ML UDC PEG SCH ×4 (10:00→20:24)
[2018-01-18] MEDS: POTASSIUM CHLORIDE 20MEQ/15ML 473ML GT SCH (10:00)
[2018-01-18] MEDS: MAGNESIUM OXIDE 400 MG TAB PEG SCH ×2 (10:00→20:24)
[2018-01-18] MEDS: LANSOPRAZOLE SOLUTAB 30 MG GT SCH (10:00)
--- NOTE | 2018-01-18 10:36 | Medical Consult ---
Consultation Date of Consultation: January 18, 2018. Attending Physician: Guido Vargas M.D. Reason for Consultation: Status post right foot amputation, history of osteo- History of Present Illness 67-year-old male well-known to the infectious disease service with history of right foot osteomyelitis, previously treated with Zyvox and ertapenem, with persistent osteomyelitis of the foot, now status post transmetatarsal amputation of the right foot. Patient states that he has been feeling otherwise well, denies any significant associated fever, chills, or other new systemic complaints. He currently rates his pain 0 out of 10. He is currently on Zyvox and ertapenem. Cultures growing gram-negative bacilli. Past Medical/Surgical History Past Medical/Surgical History PAST MEDICAL HISTORY: 1. Osteomyelitis, right foot. 2. Acute kidney failure. 3. Dysphagia. 4. Generalized weakness. 5. Hypertension. 6. Peripheral vascular disease. 7. Esophageal obstruction. 8. Nicotine dependence with chewing tobacco. 9. Gastroesophageal reflux disease without esophagitis. 10. Major depressive disorder. 11. Anxiety disorder. 12. Iron-deficiency anemia. 13. Benign prostatic hyperplasia. 14. Ambulatory dysfunction. 15. History of enterocolitis due to Clostridium difficile. 16. Pressure sores of his left heel, sacral region, and right foot. 17. Adult failure to thrive. 18. Cachexia. 19. History of pneumonia. 20. Indwelling PEG tube and Fields catheter. Family History Noncontributory Social History Smoking Status: Never Smoker Drug Use: none Marital Status: single Occupation Status: retired Allergies Coded Allergies: No Known Allergies (Unverified , 01/17/18) Current Inpatient Medications Current Inpatient Medications Medications (Trade) Dose Ordered Sig/Pola Route Start Time Stop Time Status Last Admin Dose Admin Acetaminophen (Tylenol Tab) 650 mg Q6H PRN PEG 01/17/18 17:00 02/16/18 16:59 Diphenhydramine HCl (Benadryl Inj) 25 mg Q8 PRN IV 01/17/18 17:00 02/16/18 16:59 Metoclopramide HCl (Reglan Inj) 10 mg Q6H PRN IV 01/17/18 17:00 02/16/18 16:59 Ondansetron HCl (Zofran Inj) 4 mg Q6H PRN IV 01/17/18 17:00 02/16/18 16:59 Docusate Sodium (coLACE SYRUP) 100 mg BID GT 01/17/18 21:00 02/16/18 20:59 01/17/18 21:26 100 MG Dextrose/Sodium Chloride 1,000 ml @ 75 mls/hr [id number] IV 01/17/18 19:50 02/16/18 19:49 01/17/18 21:34 75 MLS/HR Enteral Nutritional Formula (Fibersource Hn) 1,000 ml QPM GT 01/17/18 21:00 02/16/18 20:59 01/17/18 21:27 1,000 ML Folic Acid (Folvite Tab) 1 mg BID PEG 01/17/18 21:00 02/16/18 20:59 01/17/18 21:26 1 MG Linezolid (Zyvox Tab) 600 mg DAILY GT 01/18/18 09:00 03/01/18 08:59 Magnesium Hydroxide (Milk Of Magnesia Susp) 30 ml QD PRN PEG 01/17/18 17:00 02/16/18 16:59 Magnesium Oxide (Mag-Ox Tab) 400 mg BID PEG 01/17/18 21:00 02/16/18 20:59 01/17/18 21:26 400 MG Mirtazapine (Remeron Solutab) 15 mg HS PO 01/17/18 21:00 02/16/18 20:59 01/17/18 21:27 15 MG Lansoprazole (Prevacid Solutab) 30 mg DAILY GT 01/18/18 09:00 02/17/18 08:59 Potassium Chloride (Mandy Ciel Elix) 10 meq DAILY GT 01/18/18 09:00 02/17/18 08:59 Sucralfate (Carafate Susp) 1 gm QID PEG 01/17/18 21:00 02/16/18 20:59 01/17/18 21:27 1 GM Oxycodone HCl (Roxicodone Immediate Rel Tab) 1 TABLET FOR PAIN RATING... Q4H PRN GT 01/17/18 17:15 01/31/18 17:14 01/18/18 06:41 10 MG Morphine Sulfate (MoRPHine SULFATE INJ) 2 mg for pain less than ... Q4HWA PRN IV 01/17/18 17:15 01/31/18 17:14 Ertapenem 1 gm/ Sodium Chloride 50 ml @ 100 mls/hr DAILY IV 01/18/18 09:00 03/01/18 08:59 Review of Systems All systems were reviewed and are negative except as per HPI Physical Exam Date Time Temp Pulse Resp B/P (MAP) Pulse Ox O2 Delivery O2 Flow Rate FiO2 01/18/18 06:53 37.2 93 15 95/47 (63) 99 Room Air 01/18/18 03:28 37.0 86 14 86/43 (57) 99 Room Air 01/18/18 00:10 Room Air 01/17/18 23:52 36.8 85 14 75/36 (49) 100 Room Air 01/17/18 20:15 36.4 91 16 89/48 (62) 99 Room Air 01/17/18 19:25 Nasal Cannula 2.0 01/17/18 19:15 36.5 97 17 102/66 (78) 97 Room Air 01/17/18 18:15 98 Nasal Cannula 2.0 01/17/18 18:15 36.3 86 18 94/57 (69) 100 Nasal Cannula 2.0 01/17/18 17:55 79 14 96/45 100 Nasal Cannula 2 01/17/18 17:40 77 15 87/49 100 Nasal Cannula 2 01/17/18 17:25 36.1 83 16 87/49 100 Nasal Cannula 2 01/17/18 17:15 83 17 98/53 100 Nasal Cannula 2 01/17/18 17:05 85 20 92/52 100 Nasal Cannula 2 01/17/18 16:55 85 16 86/48 100 Oxymask 10 01/17/18 16:45 36.0 88 13 125/59 100 Oxymask 10 General Appearance: WD/WN, no apparent distress Head: normocephalic, atraumatic Eyes: normal inspection, EOMI, sclerae normal ENT: normal ENT inspection, hearing grossly normal, pharynx normal Neck: supple, no adenopathy, thyroid normal, trachea midline Respiratory/Chest: chest non-tender, lungs clear, normal breath sounds, no respiratory distress Cardiovascular: regular rate, rhythm, no edema, no gallop, no murmur Abdomen/GI: normal bowel sounds, non tender, soft, no organomegaly Back: normal inspection, no CVA tenderness Extremities/Musculoskelatal: no calf tenderness, non-tender, + slow capillary refill Neurologic/Psych: alert, normal mood/affect, oriented x 3 Skin: normal color, no rash, + pertinent finding (Dressing intact right foot) Lymphatic: no adenopathy Laboratory Results Date/Time Source Procedure Growth Status 01/17/18 16:00 Bone Foot Right Gram Stain - Final Resulted 01/17/18 16:00 Bone Foot Right Bacterial Culture Pending Resulted 01/17/18 19:20 Nasal MRSA DNA Surveillance Screen - Final Specimen Negative for MRSA by DNA Probe Complete 01/17/18 16:00 Tissue Foot Right Gram Stain - Final Resulted 01/17/18 16:00 Bacterial Culture - Preliminary Gram Negative Bacilli Resulted Last 24 Hours Test 01/17/18 17:40 01/18/18 06:33 White Blood Count 9.25 K/uL 10.22 K/uL Red Blood Count 2.89 M/uL 2.37 M/uL Hemoglobin 8.7 g/dL 7.3 g/dL Hematocrit 26.3 % 21.6 % Mean Corpuscular Volume 91.0 fL 91.1 fL Mean Corpuscular Hemoglobin 30.1 pg 30.8 pg Mean Corpuscular Hemoglobin Concent 33.1 g/dl 33.8 g/dl RDW Standard Deviation 63.7 fL 63.3 fL RDW Coefficient of Variation 19.1 % 19.0 % Platelet Count 94 K/uL 94 K/uL Mean Platelet Volume 8.4 fL 8.2 fL Prothrombin Time 11.5 SECONDS 11.4 SECONDS Prothromb Time International Ratio 1.1 1.1 Sodium Level 136 mmol/L Potassium Level 3.7 mmol/L Chloride Level 102 mmol/L Carbon Dioxide Level 27 mmol/L Anion Gap 7.0 mmol/L Blood Urea Nitrogen 16 mg/dl Creatinine 0.88 mg/dl Est Creatinine Clear Calc Drug Dose 75.7 ml/min Estimated GFR () 103.0 Estimated GFR (Non- 88.9 BUN/Creatinine Ratio 17.6 Random Glucose 102 mg/dl Calcium Level 8.5 mg/dl Total Bilirubin 0.7 mg/dl Direct Bilirubin 0.2 mg/dl Aspartate Amino Transf (AST/SGOT) 13 U/L Alanine Aminotransferase (ALT/SGPT) 14 U/L Alkaline Phosphatase 107 U/L Total Protein 5.9 gm/dl Albumin 2.3 gm/dl Globulin 3.6 gm/dl Albumin/Globulin Ratio 0.6 [~ rep ct add3]] INTRAOPERATIVE RIGHT FOOT 3 VIEWS CLINICAL HISTORY: RT TRANSMETATARSAL AMP COMPARISON STUDY: 12/15/2017 FINDINGS: 3 intraoperative fluoroscopic spot images are provided for interpretation. 18 seconds of fluoroscopic time was utilized. There are postsurgical changes of a first through fifth transmetatarsal amputation. Extensive vascular calcifications are evident. IMPRESSION: Postsurgical changes of a transmetatarsal amputation Electronically signed by: Timoteo Ryan M.D. 01/17/2018 7:33 PM Dictated Date/Time: 01/17/2018 7:32 PM Assessment & Plan 67-year-old male with right foot osteomyelitis in the setting of severe peripheral arterial disease, now status post transmetatarsal amputation. Patient will be continued on Zyvox and ertapenem pending further culture results. We will make adjustment once these are available. Will follow.
[2018-01-18 10:47] VITALS: BP 100/54; PULSE 90; TEMP 37; O2SAT 98
[2018-01-18 15:46] VITALS: BP 114/59; PULSE 96; TEMP 37.2; O2SAT 99
[2018-01-18 16:39] VITALS: Ht 182.9 cm; Wt 65.1 kg
--- NOTE | 2018-01-18 17:24 | Progress Note ---
Subjective Date of Service: January 18, 2018. Subjective Pt evaluation today including: conversation w/ patient, physical exam, lab review, review of studies, review of inpatient medication list Saw/examined the patient in room 324 He's doing okay after his metatarsal amputation Denies any pain Eating well fibersource through PEG tube No nausea/vomiting/fevers/chills, etc. Review of Systems Constitutional: No fever, No chills, No weakness Respiratory: No cough, No sputum, No shortness of breath Cardiac: No chest pain Abdomen: No pain, No nausea, No vomiting, No diarrhea, No constipation, No GI bleeding Musculoskeletal: No joint pain, No muscle pain Medications Current Inpatient Medications Medications (Trade) Dose Ordered Sig/Pola Route Start Time Stop Time Status Last Admin Dose Admin Acetaminophen (Tylenol Tab) 650 mg Q6H PRN PEG 01/17/18 17:00 02/16/18 16:59 Diphenhydramine HCl (Benadryl Inj) 25 mg Q8 PRN IV 01/17/18 17:00 02/16/18 16:59 Metoclopramide HCl (Reglan Inj) 10 mg Q6H PRN IV 01/17/18 17:00 02/16/18 16:59 Ondansetron HCl (Zofran Inj) 4 mg Q6H PRN IV 01/17/18 17:00 02/16/18 16:59 Docusate Sodium (coLACE SYRUP) 100 mg BID GT 01/17/18 21:00 02/16/18 20:59 01/17/18 21:26 100 MG Dextrose/Sodium Chloride 1,000 ml @ 75 mls/hr [id number] IV 01/17/18 19:50 02/16/18 19:49 01/18/18 10:00 75 MLS/HR Folic Acid (Folvite Tab) 1 mg BID PEG 01/17/18 21:00 02/16/18 20:59 01/18/18 10:00 1 MG Linezolid (Zyvox Tab) 600 mg DAILY GT 01/18/18 09:00 03/01/18 08:59 01/18/18 10:00 600 MG Magnesium Hydroxide (Milk Of Magnesia Susp) 30 ml QD PRN PEG 01/17/18 17:00 02/16/18 16:59 Magnesium Oxide (Mag-Ox Tab) 400 mg BID PEG 01/17/18 21:00 02/16/18 20:59 01/18/18 10:00 400 MG Mirtazapine (Remeron Solutab) 15 mg HS PO 01/17/18 21:00 02/16/18 20:59 01/17/18 21:27 15 MG Lansoprazole (Prevacid Solutab) 30 mg DAILY GT 01/18/18 09:00 02/17/18 08:59 01/18/18 10:00 30 MG Potassium Chloride (Mandy Ciel Elix) 10 meq DAILY GT 01/18/18 09:00 02/17/18 08:59 01/18/18 10:00 10 MEQ Sucralfate (Carafate Susp) 1 gm QID PEG 01/17/18 21:00 02/16/18 20:59 01/18/18 13:53 1 GM Oxycodone HCl (Roxicodone Immediate Rel Tab) 1 TABLET FOR PAIN RATING... Q4H PRN GT 01/17/18 17:15 01/31/18 17:14 01/18/18 06:41 10 MG Morphine Sulfate (MoRPHine SULFATE INJ) 2 mg for pain less than ... Q4HWA PRN IV 01/17/18 17:15 01/31/18 17:14 Ertapenem 1 gm/ Sodium Chloride 50 ml @ 100 mls/hr DAILY IV 01/18/18 09:00 03/01/18 08:59 01/18/18 10:00 100 MLS/HR Enteral Nutritional Formula (Fibersource Hn) 700 ml DAILY@2000 PEG 01/18/18 20:00 02/17/18 19:59 Objective Vital Signs Date Time Temp Pulse Resp B/P (MAP) Pulse Ox O2 Delivery O2 Flow Rate FiO2 01/18/18 16:00 Room Air 01/18/18 15:46 37.2 96 15 114/59 (77) 99 Room Air 01/18/18 10:47 37.0 90 16 100/54 (69) 98 Room Air 01/18/18 08:00 Room Air 01/18/18 06:53 37.2 93 15 95/47 (63) 99 Room Air 01/18/18 03:28 37.0 86 14 86/43 (57) 99 Room Air 01/18/18 00:10 Room Air 01/17/18 23:52 36.8 85 14 75/36 (49) 100 Room Air 01/17/18 20:15 36.4 91 16 89/48 (62) 99 Room Air 01/17/18 19:25 Nasal Cannula 2.0 01/17/18 19:15 36.5 97 17 102/66 (78) 97 Room Air 01/17/18 18:15 98 Nasal Cannula 2.0 01/17/18 18:15 36.3 86 18 94/57 (69) 100 Nasal Cannula 2.0 01/17/18 17:55 79 14 96/45 100 Nasal Cannula 2 01/17/18 17:40 77 15 87/49 100 Nasal Cannula 2 01/17/18 17:25 36.1 83 16 87/49 100 Nasal Cannula 2 01/17/18 17:15 83 17 98/53 100 Nasal Cannula 2 Physical Exam General Appearance: no apparent distress Respiratory/Chest: lungs clear, normal breath sounds, no respiratory distress, no accessory muscle use Cardiovascular: regular rate, rhythm, no edema, no murmur Abdomen: + pertinent finding (PEG tube) Laboratory Results Last 24 Hours Test 01/17/18 17:40 01/18/18 06:33 White Blood Count 9.25 K/uL 10.22 K/uL Red Blood Count 2.89 M/uL 2.37 M/uL Hemoglobin 8.7 g/dL 7.3 g/dL Hematocrit 26.3 % 21.6 % Mean Corpuscular Volume 91.0 fL 91.1 fL Mean Corpuscular Hemoglobin 30.1 pg 30.8 pg Mean Corpuscular Hemoglobin Concent 33.1 g/dl 33.8 g/dl RDW Standard Deviation 63.7 fL 63.3 fL RDW Coefficient of Variation 19.1 % 19.0 % Platelet Count 94 K/uL 94 K/uL Mean Platelet Volume 8.4 fL 8.2 fL Prothrombin Time 11.5 SECONDS 11.4 SECONDS Prothromb Time International Ratio 1.1 1.1 Sodium Level 136 mmol/L Potassium Level 3.7 mmol/L Chloride Level 102 mmol/L Carbon Dioxide Level 27 mmol/L Anion Gap 7.0 mmol/L Blood Urea Nitrogen 16 mg/dl Creatinine 0.88 mg/dl Est Creatinine Clear Calc Drug Dose 75.7 ml/min Estimated GFR () 103.0 Estimated GFR (Non- 88.9 BUN/Creatinine Ratio 17.6 Random Glucose 102 mg/dl Calcium Level 8.5 mg/dl Total Bilirubin 0.7 mg/dl Direct Bilirubin 0.2 mg/dl Aspartate Amino Transf (AST/SGOT) 13 U/L Alanine Aminotransferase (ALT/SGPT) 14 U/L Alkaline Phosphatase 107 U/L Total Protein 5.9 gm/dl Albumin 2.3 gm/dl Globulin 3.6 gm/dl Albumin/Globulin Ratio 0.6 Assessment and Plan R Foot Osteomyelitis s/p R Foot Transmetatarsal Amputation - doing well - pain is controlled - pseudomonas on cultures; sensitivities pending - currently on Invanz and Zyvox Anemia - patient's Hgb was around 5.9 prior to surgery - unsure of underlying cause - monitor Hgb; currently 7.3 - will check CBC in AM, transfuse PRN Status Post PEG tube - secondary to dysphagia issues? - currently, he's a mechanical soft diet with Fibersource through PEG tube to supplement DVT ppx - as per ortho FULL CODE
--- NOTE | 2018-01-18 17:54 | PROGRESS NOTE ---
DATE: 01/18/2018 He is resting comfortably in bed without significant pain. He denies any chest pain, shortness of breath, lightheaded, or dizziness. He is afebrile. His vital signs are stable. He is not tachycardic. His dressing is clean, dry, and intact. He responds appropriately to questions. He is watching TV talks and laughs. His cultures are growing out Pseudomonas species and probable yeast. His MRSA nasal swab is negative. He will continue on his antibiotics. Hemoglobin is noted to be 7 today, which is about where he was prior to getting his blood transfusion last week. We will continue to monitor. Transfuse if necessary. In terms of DVT prophylaxis, we will do mechanical devices. I think that with his low platelet count being about 95,000, use of heparin or Lovenox could be problematic. We will discuss with pharmacy. I do not want to put him on Coumadin. His activity level currently is probably not much different than what it normally is. We will change dressing tomorrow.
[2018-01-18 19:15] VITALS: BP 92/50; PULSE 95; TEMP 37; O2SAT 99
[2018-01-18] MEDS: FIBERSOURCE HN 1000ML BAG PEG SCH (20:23)
[2018-01-18] MEDS: MIRTAZAPINE SOLTAB 15 MG PO SCH (20:24)
[2018-01-18] MEDS: CEFEPIME IV 2,000 MG in SYRINGE 7.5 ML IV SCH (21:03)
[2018-01-18] MEDS ORDERED: CEFEPIME IV 2,000 MG in DEXTROSE 5% 100ML 100 ML IV SCH (22:00)
[2018-01-18 22:50] VITALS: BP 103/57; PULSE 94; TEMP 37.1; O2SAT 98
[2018-01-19] VITALS (14 sets, daily range): BP systolic 105–139; BP diastolic 52–68; PULSE 72–91; TEMP 36.6–37.5; O2SAT 98–100
[2018-01-19] MEDS: CEFEPIME IV 2,000 MG in SYRINGE 7.5 ML IV SCH ×2 (05:14→14:03)
[2018-01-19 06:34] LABS: CALCIUM 7.7 mg/dl (8.5-10.1); CREATININE 0.86 mg/dl (0.60-1.40); PHOSPHORUS 2.2 mg/dl (2.5-4.9); POTASSIUM 4.7 mmol/L (3.5-5.1)
[2018-01-19 06:37] LABS: HEMATOCRIT 19.3 % (42-52); HEMOGLOBIN 6.3 g/dL (14.0-18.0); MEAN CELL VOLUME 91.9 fL (80-100); MEAN CORPUSCULAR HGB CONC 32.6 g/dl (32-36); MEAN PLATELET VOLUME 8.3 fL (7.4-10.4); PLATELET COUNT 88 K/uL (130-400); RED CELL DISTRIBUTION WIDTH CV 19.1 % (11.5-14.5); RED CELL DISTRIBUTION WIDTH SD 62.7 fL (36.4-46.3); WHITE BLOOD COUNT 9.09 K/uL (4.8-10.8)
[2018-01-19] MEDS ORDERED: FLUCONAZOLE 100 MG TAB PO SCH (09:00)
[2018-01-19] MEDS: POTASSIUM CHLORIDE 20MEQ/15ML 473ML GT SCH (09:02)
[2018-01-19] MEDS: DOCUSATE SODIUM 100 MG/10 ML UDC GT SCH ×2 (09:02→20:22)
[2018-01-19] MEDS: SUCRALFATE 1 GM/10 ML UDC PEG SCH ×4 (09:03→20:22)
[2018-01-19] MEDS: MAGNESIUM OXIDE 400 MG TAB PEG SCH ×2 (09:03→20:23)
[2018-01-19] MEDS: LANSOPRAZOLE SOLUTAB 30 MG GT SCH (09:04)
[2018-01-19] MEDS: LINEZOLID 600 MG TAB GT SCH (09:04)
--- NOTE | 2018-01-19 09:48 | Gastrointestinal Consultation ---
Gastrointestinal Consultation Date of Consultation: January 19, 2018 Attending Physician: Dr. Vargas Consulting Physician: Dr. Lua Reason for Consultation: Anemia History of Present Illness Patient is a 67 year old male patient of Dr. Pathak with a hx of HTN, PVD, GERD with a PEG for dysphagia but eats/drinks po, general debilitation/failure to thrive with pressure sores on the sacrum and feet. He was brought here from [facility], underwent right transmetarsal partial foot amputation with plans for d/c back to [facility] in the next 1-2 days. Ortho has consulted GI regarding anemia. Hb was 7.3 prior on January 09 (outpatient) and he was transfused ( not at this facility - so unsure how many units he was given). Hb just prior to the surgery on 01/17 was 10.3 and has decreased to 6.3 this morning. There has not been any gross GI bleeding. In fact, as I arrived to interview and exam the patient, he was being cleaned from incontinence of a brown, loose stool. Past Medical/Surgical History Past Medical History: 1. Osteomyelitis, right foot. 2. Acute kidney failure. 3. Dysphagia. 4. Generalized weakness. 5. Hypertension. 6. Peripheral vascular disease. 7. Esophageal obstruction. 8. Nicotine dependence with chewing tobacco. 9. Gastroesophageal reflux disease without esophagitis. 10. Major depressive disorder. 11. Anxiety disorder. 12. Iron-deficiency anemia. 13. Benign prostatic hyperplasia. 14. Ambulatory dysfunction. 15. History of enterocolitis due to Clostridium difficile. 16. Pressure sores of his left heel, sacral region, and right foot. 17. Adult failure to thrive. 18. Cachexia. 19. History of pneumonia. 20. Indwelling PEG tube and Fields catheter. Past Surgical History: 1. PEG 2. Right foot partial amputation Social History Smoking Status: Never Smoker Drug Use: none Marital Status: single Occupation Status: retired Allergies Coded Allergies: No Known Allergies (Unverified , 01/17/18) Current Medications Home Meds and Scripts Medications Dose Route/Sig Max Daily Dose Days Date Category [neuropenum] 1 Gm IV DAILY 01/17/18 Reported Jevity 1.5 Dipak (Enteral Nutritional Formula) 1 Can Liqd 1 Can GT HS, 60CC/HR 01/17/18 Reported Tylenol (Acetaminophen) 325 Mg Tab 650 Mg PEG TID 01/09/18 Reported Probiotic (Saccharomyces Boulardii) 250 Mg Cap 1 Cap PEG DAILY 01/09/18 Reported Remeron Soltab (Mirtazapine) 15 Mg Soltab 15 Mg PEG HS 01/09/18 Reported Zyvox (Linezolid) 600 Mg Tab 600 Mg PEG DAILY 01/09/18 Reported Micro-K Ext Rel (Potassium Chloride) 10 Meq Capcr 10 Meq PEG DAILY 01/09/18 Reported Carafate (Sucralfate) 1 Gm/10 Ml Lexi 10 Ml PEG QID 30 11/16/17 Reported Protonix (Pantoprazole Sodium) 40 Mg Tab 40 Mg PEG DAILY 11/16/17 Reported Mag-Ox (Magnesium Oxide) 400 Mg Tab 400 Mg PEG BID 11/16/17 Reported Folvite (Folic Acid) 1 Mg Tab 1 Tab PEG BID 90 11/16/17 Reported Milk Of Magnesia (Magnesium Hydroxide) 30 Ml Susp 30 Ml PEG QD PRN 11/16/17 Reported Multivitamin (Multivitamins) Tab 1 Tab PEG DAILY 11/16/17 Reported Review of Systems Constitutional: No fever, No chills, No sweats, No weight loss, No weakness Eyes: No eye pain, No redness ENT: No sore throat, No trouble swallowing, No pain on swallowing Respiratory: No cough, No wheezing, No shortness of breath, No dyspnea on exertion Cardiac: No chest pain, No edema, No palpitations Abdomen: + see HPI, + diarrhea, No pain, No nausea, No vomiting, No constipation, No GI bleeding Musculoskeletal: + problem reported (right foot surgical pain) Neuro: No memory loss, No weakness, No numbness/tingling, No vertigo, No balance problems Psych: No depression symptoms, No anxiety, No insomnia Heme: No abnormal bleeding/bruising, No night sweats Endo: No excessive thirst, No excessive urination Skin: No rash, No itch, No new/changing skin lesions, No jaundice Physical Exam Date Time Temp Pulse Resp B/P (MAP) Pulse Ox O2 Delivery O2 Flow Rate FiO2 01/19/18 09:17 37.2 77 19 108/61 99 01/19/18 08:44 36.8 89 16 106/59 100 01/19/18 08:22 37.4 88 105/57 100 01/19/18 08:04 36.6 91 18 111/52 01/18/18 22:50 37.1 94 16 103/57 (72) 98 Room Air 01/18/18 20:20 Room Air 01/18/18 19:15 37.0 95 16 92/50 (64) 99 Room Air 01/18/18 16:00 Room Air 01/18/18 15:46 37.2 96 15 114/59 (77) 99 Room Air 01/18/18 10:47 37.0 90 16 100/54 (69) 98 Room Air General Appearance: no apparent distress, + mild distress (pain with any manipulation of the right foot), + thin Eyes: normal inspection, EOMI Neck: supple, no adenopathy, thyroid normal, no JVD Respiratory/Chest: chest non-tender, lungs clear, normal breath sounds, no accessory muscle use Cardiovascular: regular rate, rhythm, no JVD, no murmur Abdomen: normal bowel sounds, non tender, soft, no organomegaly, + pertinent finding Extremities: normal inspection, no pedal edema, normal capillary refill Neurologic/Psych: alert, normal mood/affect, oriented x 3 Skin: normal color, no jaundice, warm/dry, no rash Laboratory Results Last 24 Hours Test 01/19/18 05:36 White Blood Count 9.09 K/uL Red Blood Count 2.10 M/uL Hemoglobin 6.3 g/dL Hematocrit 19.3 % Mean Corpuscular Volume 91.9 fL Mean Corpuscular Hemoglobin 30.0 pg Mean Corpuscular Hemoglobin Concent 32.6 g/dl RDW Standard Deviation 62.7 fL RDW Coefficient of Variation 19.1 % Platelet Count 88 K/uL Mean Platelet Volume 8.3 fL Sodium Level 138 mmol/L Potassium Level 4.7 mmol/L Chloride Level 106 mmol/L Carbon Dioxide Level 29 mmol/L Anion Gap 3.0 mmol/L Blood Urea Nitrogen 16 mg/dl Creatinine 0.86 mg/dl Est Creatinine Clear Calc Drug Dose 77.5 ml/min Estimated GFR () 104.0 Estimated GFR (Non- 89.7 BUN/Creatinine Ratio 18.8 Random Glucose 146 mg/dl Calcium Level 7.7 mg/dl Phosphorus Level 2.2 mg/dl Magnesium Level 1.9 mg/dl Impression Patient is a 67 year old male with acute on chronic anemia. His anemia is multifactorial. I am unsure what his baseline is and how many units of blood he has received this month, but Hb is currently 6.3 (receiving another unit) and surgical blood loss would be expected, but not to this degree. It is reasonable to r/o UGI blood loss from ulcers etc but would expect gross GI blood loss with this rapid decline if the anemia were caused by GI bleeding. Plan 1. Pt has already eaten today, so we are unable to provide EGD today. 2. If pt remains here over the weekend, we could offer EGD on Monday. 3. If pt is discharged, we could arrange an OP EGD, likely next week. 4. Would avoid NSAID, antiplatelets. 5. Will review OP EPIC notes (Dr. Nunez patient) to determine baseline Hb and prior endoscopies. Addendum: after review of OP EPIC charts: Mr. Villarreal has had anemia for > 2 yrs and has had multiple EGDs in the past [address] Peguero in [place]. He has had Grade D esophagitis (though not in the past 3 EGDs) and has had a severe esophageal stricture, dilated. This stricture is apparently the cause of his esophageal dysphagia and need for the PEG tube. There is no record of recent colonoscopy. In light of many recent EGDs , would empirically treat for esophagitis with BID PPI but would not urgently schedule an EGD. Would defer to PCP after discharge, but would suggest scheduling EGD/Colonoscopy with Dr. Peguero in [place] - if, in light of pt comorbidities, possible benefits of EGD/Colonoscopy outweigh risks in this patient. Late entry: I saw and examine dthe patient on Friday 01/19 with SHAHEED Jackson. Her note reflects our findings and plan. Extensive history reviewed. Patient should follow up with Gi provider who has been managing his anemia.
[2018-01-19] MEDS: D5W AND 1/2NSS 1,000 ML IV SCH ×2 (11:53→17:34)
--- NOTE | 2018-01-19 13:34 | PROGRESS NOTE ---
DATE: 01/19/2018 Resting comfortably in bed. Reports no problems. No chest pain, shortness of breath or lightheaded or dizziness. Afebrile, vital signs are stable. Heart rate is 75-91. He is satting 99-100% on room air. Dressing is changed. The foot is mildly and appropriately swollen without hematoma formation. There is 0.5 cm wide x 2-3 cm long area on the dorsal aspect of the proximal aspect of the dorsal flap where there is some duskiness otherwise good capillary refill throughout. Dressing rechanged. He has a waffle boots on and a protective dressing on left heel, which is also bothering him. Urine output 1500 mL. White count 9, hemoglobin 6, hematocrit 19, platelet count 88. PRP is noted. Cultures are growing out yeast, not Yessenia and Pseudomonas. The Pseudomonas is sensitive to everything except for aztreonam, cefepime and ceftazidime. Pathology is still pending. IMPRESSION: 1. Osteomyelitis of the right foot status post transmetatarsal amputation. 2. Multiple medical problems. 3. Acute postsurgical anemia superimposed on chronic multifactorial anemia. PLAN: Findings discussed with patient. Dressing is changed. Continue IV antibiotics. Dr. De Los Santos may be in over the weekend. GI has been consulted and consider a scope on Monday. We will recheck H and H later today and in the morning. He is to continue to be nonweightbearing and elevation. Given his anemia and low platelet count, I think that only mechanical devices are suitable for DVT prophylaxis.
--- NOTE | 2018-01-19 15:12 | Infectious Disease Progress Nt ---
Progress Note Date of Service January 19, 2018. Subjective Pt evaluation today including: conversation w/ patient, physical exam, chart review, lab review, review of studies, conversation w/ group segment consultant, review of inpatient medication list Patient is status post transfusion. Offers no new complaints. Remains afebrile. All Other Systems: Reviewed and Negative Medications Current Inpatient Medications Medications (Trade) Dose Ordered Sig/Pola Route Start Time Stop Time Status Last Admin Dose Admin Acetaminophen (Tylenol Tab) 650 mg Q6H PRN PEG 01/17/18 17:00 02/16/18 16:59 Diphenhydramine HCl (Benadryl Inj) 25 mg Q8 PRN IV 01/17/18 17:00 02/16/18 16:59 Metoclopramide HCl (Reglan Inj) 10 mg Q6H PRN IV 01/17/18 17:00 02/16/18 16:59 Ondansetron HCl (Zofran Inj) 4 mg Q6H PRN IV 01/17/18 17:00 02/16/18 16:59 Docusate Sodium (coLACE SYRUP) 100 mg BID GT 01/17/18 21:00 02/16/18 20:59 01/19/18 09:02 100 MG Dextrose/Sodium Chloride 1,000 ml @ 75 mls/hr [id number] IV 01/17/18 19:50 02/16/18 19:49 01/19/18 11:53 75 MLS/HR Folic Acid (Folvite Tab) 1 mg BID PEG 01/17/18 21:00 02/16/18 20:59 01/19/18 09:03 1 MG Linezolid (Zyvox Tab) 600 mg DAILY GT 01/18/18 09:00 03/01/18 08:59 01/19/18 09:04 600 MG Magnesium Hydroxide (Milk Of Magnesia Susp) 30 ml QD PRN PEG 01/17/18 17:00 02/16/18 16:59 Magnesium Oxide (Mag-Ox Tab) 400 mg BID PEG 01/17/18 21:00 02/16/18 20:59 01/19/18 09:03 400 MG Mirtazapine (Remeron Solutab) 15 mg HS PO 01/17/18 21:00 02/16/18 20:59 01/18/18 20:24 15 MG Lansoprazole (Prevacid Solutab) 30 mg DAILY GT 01/18/18 09:00 02/17/18 08:59 01/19/18 09:04 30 MG Potassium Chloride (Mandy Ciel Elix) 10 meq DAILY GT 01/18/18 09:00 02/17/18 08:59 01/19/18 09:02 10 MEQ Sucralfate (Carafate Susp) 1 gm QID PEG 01/17/18 21:00 02/16/18 20:59 01/19/18 14:01 1 GM Oxycodone HCl (Roxicodone Immediate Rel Tab) 1 TABLET FOR PAIN RATING... Q4H PRN GT 01/17/18 17:15 01/31/18 17:14 01/18/18 06:41 10 MG Morphine Sulfate (MoRPHine SULFATE INJ) 2 mg for pain less than ... Q4HWA PRN IV 01/17/18 17:15 01/31/18 17:14 Enteral Nutritional Formula (Fibersource Hn) 700 ml DAILY@2000 PEG 01/18/18 20:00 02/17/18 19:59 01/18/18 20:23 700 ML Fluconazole (Diflucan Tab) 100 mg QAM PO 01/19/18 09:00 03/02/18 08:59 01/19/18 09:04 100 MG Cefepime HCl 2000 mg/Syringe 20 ml @ 5 mls/min Q8H IV 01/18/18 22:00 03/01/18 21:59 01/19/18 14:03 5 MLS/MIN Objective Vital Signs Date Time Temp Pulse Resp B/P (MAP) Pulse Ox O2 Delivery O2 Flow Rate FiO2 01/19/18 14:12 36.7 84 18 133/68 (89) 100 Room Air 01/19/18 13:22 37.5 83 16 125/58 100 01/19/18 12:31 37.1 79 18 133/58 100 01/19/18 12:02 36.9 81 16 132/63 100 01/19/18 11:38 36.7 78 16 139/62 100 01/19/18 10:40 37.0 75 18 137/66 100 01/19/18 09:45 36.9 75 122/65 (84) 01/19/18 09:17 37.2 77 19 108/61 99 01/19/18 08:44 36.8 89 16 106/59 100 01/19/18 08:30 99 Room Air 01/19/18 08:22 37.4 88 105/57 100 01/19/18 08:04 36.6 91 18 111/52 01/18/18 22:50 37.1 94 16 103/57 (72) 98 Room Air 01/18/18 20:20 Room Air 01/18/18 19:15 37.0 95 16 92/50 (64) 99 Room Air 01/18/18 16:00 Room Air 01/18/18 15:46 37.2 96 15 114/59 (77) 99 Room Air Physical Exam General Appearance: WD/WN, no apparent distress Eyes: normal inspection, EOMI, sclerae normal ENT: normal ENT inspection, pharynx normal Neck: supple, no adenopathy, thyroid normal, trachea midline Respiratory/Chest: chest non-tender, lungs clear, normal breath sounds, no respiratory distress Cardiovascular: regular rate, rhythm, no gallop, no murmur Abdomen: normal bowel sounds, non tender, soft, no organomegaly Extremities: non-tender, no calf tenderness Neurologic/Psychiatric: alert, oriented x 3 Skin: normal color, no rash, + pertinent finding (Left foot dressing intact) Laboratory Results RUN DATE: 01/19/18 [facility] LAB PAGE 1 RUN TIME: 1152 Specimen Inquiry PATIENT: RICHIE ANNE LOC: [facility] U # : [id number] AGE/SX: 67/M ROOM: E319 REG : 01/17/[address]: Guido Vargas M.D. : 1950 BED: 1 DIS : STATUS: ADM IN TLOC: SPEC #: [id number] BRIGIDA: 01/17/18 STATUS: RES REQ #: [id number] RECD: 01/17/[address]: Guido Vargas M.D. SOURCE: BONE ENTR: 01/17/[address]: Anthony Pathak D.Kishor SPDESC: FOOT RIGHT Bradley Willams MD, John C., M.D. ORDERED: AER/GUERDA CULTSMR Procedure Result Verified Site GRAM STAIN Final 01/18/18 RESULT FEW WBCs SEEN NO ORGANISMS SEEN OR AER/GUERDA CULT Preliminary 01/19/18-1152 Organism 1 PSEUDOMONAS AERUGINOSA QUANITY MODERATE SENS SENSITIVITY TO FOLLOW Organism 2 YEAST NOT YESSENIA ALBICANS QUANITY RARE SENS NO SENSITIVITY TO FOLLOW 1. PSEUDOMONAS AERUGINOSA Target Route Dose RX AB Cost M.I.C. IQ ------ ----- ------ -- ------ -------- - ------ CEFTAZIDIME I 16 CEFEPIME I 16 IMIPENEM S <=1 AZTREONAM R >16 GENTAMICIN S <=4 TOBRAMYCIN S <=4 AMIKACIN S <=16 CIPROFLOXACIN S <=1 LEVOFLOXACIN S <=2 PIP/TAZO S 64 S = SENSITIVE I = INTERMEDIATE R = RESISTANT END OF REPORT Last 24 Hours Test 01/19/18 05:36 White Blood Count 9.09 K/uL Red Blood Count 2.10 M/uL Hemoglobin 6.3 g/dL Hematocrit 19.3 % Mean Corpuscular Volume 91.9 fL Mean Corpuscular Hemoglobin 30.0 pg Mean Corpuscular Hemoglobin Concent 32.6 g/dl RDW Standard Deviation 62.7 fL RDW Coefficient of Variation 19.1 % Platelet Count 88 K/uL Mean Platelet Volume 8.3 fL Sodium Level 138 mmol/L Potassium Level 4.7 mmol/L Chloride Level 106 mmol/L Carbon Dioxide Level 29 mmol/L Anion Gap 3.0 mmol/L Blood Urea Nitrogen 16 mg/dl Creatinine 0.86 mg/dl Est Creatinine Clear Calc Drug Dose 77.5 ml/min Estimated GFR () 104.0 Estimated GFR (Non- 89.7 BUN/Creatinine Ratio 18.8 Random Glucose 146 mg/dl Calcium Level 7.7 mg/dl Phosphorus Level 2.2 mg/dl Magnesium Level 1.9 mg/dl Assessment and Plan 67-year-old male with right foot osteomyelitis in the setting of severe peripheral arterial disease, now status post transmetatarsal amputation with cultures growing Pseudomonas in non albicans Yessenia. Patient changed to Zosyn and caspofungin. Will follow.
--- NOTE | 2018-01-19 15:14 | Discharge Instructions ---
Discharge Instructions Date of Service January 19, 2018. Admission Reason for Admission: Right Foot Osteomyelitis Discharge Discharge Diagnosis / Problem: Right foot osteomyelitis Discharge Goals Goal(s): Decrease discomfort, Improve function, Increase independence Activity Recommendations Activity Limitations: per Instructions/Follow-up section Weightbearing Status: Right non-weightbearing (non weight bearing) . Instructions / Follow-Up Instructions / Follow-Up DIET: * Resume previous diet. MEDICATIONS: * Please take your prescriptions as instructed at your pre-op appointment and/ or see medication discharge instructions listed above. * If concerns develop, call your physician's office at . SPECIAL CARE INSTRUCTIONS: * Elevate right foot above your heart to relieve swelling. * Keep dressing on right foot at all times. Please do daily dressing changes. Okay to wash with soap and water, pat incision dry, redress with xeroform, 4x4 's, ABD, Rolled gauze and an CRISTOFER bandage to above his ankle. * Keep bilateral heels off of bed. * No weight on his right foot. Use walker to assist with ambulation. * Out of bed to chair as tolerated. * Post op shoe when out of bed * Allowed for full ankle range of motion as tolerated. * Sequential compression devices for DVT prophylaxis. No NSAIDS or anti- platelets, coumadin, lovenox or heparin due to acute on chronic anemia. * Your surgical extremity may be discolored due to prepping agents used on the skin. A bluish-green tint is a normal variant and should not cause alarm. Call your doctor at [phone] if: * Temperature above 101 degrees * Pain not relieved by pain medicine ordered * There is increased drainage or redness from any incision * You have any unanswered questions, problems or concerns. FOLLOW UP VISIT: * If not already scheduled, please call the office at to schedule a follow-up appointment. * You have a follow up appointment on 01/29/18 at 1:45 p.m. Current Hospital Diet Patient's current hospital diet: Regular Diet Discharge Diet Recommended Diet: Regular Diet Procedures Procedures Performed: transmetatarsal amputation Pending Studies Studies pending at discharge: no Medical Emergencies . Who to Call and When: Medical Emergencies: If at any time you feel your situation is an emergency, please call 911 immediately. . Non-Emergent Contact Non-Emergency issues call your: Surgeon Call Non-Emergent contact if: temperature is above 101, wound has increased drainage, wound has increased redness, wound has increased pain, you have any medication questions . "Provider Documentation" section prepared by Dipika Davalos. .
[2018-01-19] MEDS ORDERED: PIPERACILL/TAZOBAC CONSULT ACTIVE PRN (15:15)
[2018-01-19] MEDS ORDERED: PIPERACILL/TAZOBAC IV 4.5 GM in DEXTROSE 5% 100ML 100 ML IV SCH (15:15)
[2018-01-19] MEDS ORDERED: CASPOFUNGIN INJ 70 MG in SODIUM CHLORIDE 0.9% 250ML 250 ML IV ONE (16:00)
[2018-01-19] MEDS ORDERED: PIPERACILL/TAZOBAC IV 4.5 GM in D5W 100 ML IV ONE (16:15)
[2018-01-19 16:23] LABS: HEMATOCRIT 28.3 % (42-52); HEMOGLOBIN 9.4 g/dL (14.0-18.0); MEAN CORPUSCULAR HEMOGLOBIN 29.6 pg (25-34); MEAN CORPUSCULAR HGB CONC 33.2 g/dl (32-36); MEAN PLATELET VOLUME 8.8 fL (7.4-10.4); PLATELET COUNT 96 K/uL (130-400); RED CELL DISTRIBUTION WIDTH CV 18.2 % (11.5-14.5); WHITE BLOOD COUNT 11.21 K/uL (4.8-10.8)
--- NOTE | 2018-01-19 18:37 | Progress Note ---
Subjective Date of Service: January 19, 2018. Subjective Pt evaluation today including: conversation w/ patient, physical exam, lab review, review of studies, review of inpatient medication list Saw/examined the patient in room 319 s/p transfusion No symptoms, no foot pain Review of Systems Constitutional: + weakness Respiratory: No cough, No sputum, No wheezing, No shortness of breath, No dyspnea on exertion, No dyspnea at rest, No hemoptysis Cardiac: No chest pain Abdomen: No pain, No nausea, No vomiting, No diarrhea Musculoskeletal: No joint pain Medications Current Inpatient Medications Medications (Trade) Dose Ordered Sig/Pola Route Start Time Stop Time Status Last Admin Dose Admin Acetaminophen (Tylenol Tab) 650 mg Q6H PRN PEG 01/17/18 17:00 02/16/18 16:59 Diphenhydramine HCl (Benadryl Inj) 25 mg Q8 PRN IV 01/17/18 17:00 02/16/18 16:59 Metoclopramide HCl (Reglan Inj) 10 mg Q6H PRN IV 01/17/18 17:00 02/16/18 16:59 Ondansetron HCl (Zofran Inj) 4 mg Q6H PRN IV 01/17/18 17:00 02/16/18 16:59 Docusate Sodium (coLACE SYRUP) 100 mg BID GT 01/17/18 21:00 02/16/18 20:59 01/19/18 09:02 100 MG Dextrose/Sodium Chloride 1,000 ml @ 75 mls/hr [id number] IV 01/17/18 19:50 02/16/18 19:49 01/19/18 17:34 75 MLS/HR Folic Acid (Folvite Tab) 1 mg BID PEG 01/17/18 21:00 02/16/18 20:59 01/19/18 09:03 1 MG Magnesium Hydroxide (Milk Of Magnesia Susp) 30 ml QD PRN PEG 01/17/18 17:00 02/16/18 16:59 Magnesium Oxide (Mag-Ox Tab) 400 mg BID PEG 01/17/18 21:00 02/16/18 20:59 01/19/18 09:03 400 MG Mirtazapine (Remeron Solutab) 15 mg HS PO 01/17/18 21:00 02/16/18 20:59 01/18/18 20:24 15 MG Lansoprazole (Prevacid Solutab) 30 mg DAILY GT 01/18/18 09:00 02/17/18 08:59 01/19/18 09:04 30 MG Potassium Chloride (Mandy Ciel Elix) 10 meq DAILY GT 01/18/18 09:00 02/17/18 08:59 01/19/18 09:02 10 MEQ Sucralfate (Carafate Susp) 1 gm QID PEG 01/17/18 21:00 02/16/18 20:59 01/19/18 17:19 1 GM Oxycodone HCl (Roxicodone Immediate Rel Tab) 1 TABLET FOR PAIN RATING... Q4H PRN GT 01/17/18 17:15 01/31/18 17:14 01/18/18 06:41 10 MG Morphine Sulfate (MoRPHine SULFATE INJ) 2 mg for pain less than ... Q4HWA PRN IV 01/17/18 17:15 01/31/18 17:14 Enteral Nutritional Formula (Fibersource Hn) 700 ml DAILY@2000 PEG 01/18/18 20:00 02/17/18 19:59 01/18/18 20:23 700 ML Miscellaneous Information (Consult) 1 ea UD PRN N/A 01/19/18 15:15 02/18/18 15:14 Caspofungin 50 mg/ Sodium Chloride 260 ml @ 250 mls/hr Q24H IV 01/20/18 15:00 03/03/18 14:59 Piperacillin Sod/ Tazobactam Sod 4.5 gm/Dextrose 120 ml @ 30 mls/hr Q8H IV 01/19/18 22:00 03/02/18 21:59 Objective Vital Signs Date Time Temp Pulse Resp B/P (MAP) Pulse Ox O2 Delivery O2 Flow Rate FiO2 01/19/18 15:23 37.2 77 16 132/67 (88) 100 Room Air 01/19/18 14:12 36.7 84 18 133/68 (89) 100 Room Air 01/19/18 13:22 37.5 83 16 125/58 100 01/19/18 12:31 37.1 79 18 133/58 100 01/19/18 12:02 36.9 81 16 132/63 100 01/19/18 11:38 36.7 78 16 139/62 100 01/19/18 10:40 37.0 75 18 137/66 100 01/19/18 09:45 36.9 75 122/65 (84) 01/19/18 09:17 37.2 77 19 108/61 99 01/19/18 08:44 36.8 89 16 106/59 100 01/19/18 08:30 99 Room Air 01/19/18 08:22 37.4 88 105/57 100 01/19/18 08:04 36.6 91 18 111/52 01/18/18 22:50 37.1 94 16 103/57 (72) 98 Room Air 01/18/18 20:20 Room Air 01/18/18 19:15 37.0 95 16 92/50 (64) 99 Room Air Physical Exam General Appearance: no apparent distress Respiratory/Chest: chest non-tender, lungs clear, normal breath sounds, no respiratory distress, no accessory muscle use Cardiovascular: regular rate, rhythm, no edema, no murmur Extremities: + pertinent finding (R transmetatarsal amputation) Laboratory Results Last 24 Hours Test 01/19/18 05:36 01/19/18 16:01 White Blood Count 9.09 K/uL 11.21 K/uL Red Blood Count 2.10 M/uL 3.18 M/uL Hemoglobin 6.3 g/dL 9.4 g/dL Hematocrit 19.3 % 28.3 % Mean Corpuscular Volume 91.9 fL 89.0 fL Mean Corpuscular Hemoglobin 30.0 pg 29.6 pg Mean Corpuscular Hemoglobin Concent 32.6 g/dl 33.2 g/dl RDW Standard Deviation 62.7 fL 57.0 fL RDW Coefficient of Variation 19.1 % 18.2 % Platelet Count 88 K/uL 96 K/uL Mean Platelet Volume 8.3 fL 8.8 fL Sodium Level 138 mmol/L Potassium Level 4.7 mmol/L Chloride Level 106 mmol/L Carbon Dioxide Level 29 mmol/L Anion Gap 3.0 mmol/L Blood Urea Nitrogen 16 mg/dl Creatinine 0.86 mg/dl Est Creatinine Clear Calc Drug Dose 77.5 ml/min Estimated GFR () 104.0 Estimated GFR (Non- 89.7 BUN/Creatinine Ratio 18.8 Random Glucose 146 mg/dl Calcium Level 7.7 mg/dl Phosphorus Level 2.2 mg/dl Magnesium Level 1.9 mg/dl Assessment and Plan R Foot Osteomyelitis s/p R Foot Transmetatarsal Amputation 01/19 - continue IV abx. - plan to d/c as per ortho 01/18 - doing well - pain is controlled - pseudomonas on cultures; sensitivities pending - currently on Invanz and Zyvox Anemia 01/19 - s/p two units pRBCs - Hgb up to >9 - GI input - outpatient EGD 01/18 - patient's Hgb was around 5.9 prior to surgery - unsure of underlying cause - monitor Hgb; currently 7.3 - will check CBC in AM, transfuse PRN Status Post PEG tube - secondary to dysphagia issues? - currently, he's a mechanical soft diet with Fibersource through PEG tube to supplement DVT ppx - as per ortho FULL CODE
[2018-01-19] MEDS: MIRTAZAPINE SOLTAB 15 MG PO SCH (20:22)
[2018-01-19] MEDS: FIBERSOURCE HN 1000ML BAG PEG SCH (21:58)
[2018-01-19] MEDS: PIPERACILL/TAZOBAC IV 4.5 GM in D5W 100 ML IV SCH (22:06)
[2018-01-20] MEDS: PIPERACILL/TAZOBAC IV 4.5 GM in D5W 100 ML IV SCH ×3 (05:48→21:50)
[2018-01-20 06:00] LABS: BASO % 0.2 %; BASO ABS # 0.02 K/uL (0-0.2); EOS % 6.2 %; EOS ABS # 0.51 K/uL (0-0.5); HEMATOCRIT 25.9 % (42-52); HEMOGLOBIN 8.5 g/dL (14.0-18.0); IG# 0.02 K/uL (0.00-0.02); LYMPH % 10.7 %; LYMPH ABS # 0.89 K/uL (1.2-3.4); MEAN CELL VOLUME 89.6 fL (80-100); MEAN CORPUSCULAR HEMOGLOBIN 29.4 pg (25-34); MEAN CORPUSCULAR HGB CONC 32.8 g/dl (32-36); MEAN PLATELET VOLUME 9.4 fL (7.4-10.4); MONO % 13.2 %; MONO ABS # 1.09 K/uL (0.11-0.59); NEUT % 69.5 %; NEUT ABS # 5.75 K/uL (1.4-6.5); PLATELET COUNT 105 K/uL (130-400); RED CELL DISTRIBUTION WIDTH CV 18.6 % (11.5-14.5); RED CELL DISTRIBUTION WIDTH SD 59.5 fL (36.4-46.3); WHITE BLOOD COUNT 8.28 K/uL (4.8-10.8)
[2018-01-20 06:18] LABS: CALCIUM 8.1 mg/dl (8.5-10.1); CREATININE 0.95 mg/dl (0.60-1.40); POTASSIUM 4.2 mmol/L (3.5-5.1)
[2018-01-20 07:29] VITALS: BP 110/58; PULSE 66; TEMP 37.3; O2SAT 99
--- NOTE | 2018-01-20 08:06 | Orthopedic Progress Note ---
Orthopedic Progress Note Date of Service January 20, 2018. Subjective Post OP Day: 3 Denies: complaints Objective calves soft nontender, dressing C/D/I, A&O x3 Date Time Temp Pulse Resp B/P (MAP) Pulse Ox O2 Delivery O2 Flow Rate FiO2 01/20/18 07:29 37.3 66 16 110/58 (75) 99 Room Air 01/20/18 00:30 Room Air 01/19/18 22:39 37.2 72 16 111/58 (75) 98 Room Air 01/19/18 17:00 Room Air 01/19/18 15:23 37.2 77 16 132/67 (88) 100 Room Air 01/19/18 14:12 36.7 84 18 133/68 (89) 100 Room Air 01/19/18 13:22 37.5 83 16 125/58 100 01/19/18 12:31 37.1 79 18 133/58 100 01/19/18 12:02 36.9 81 16 132/63 100 01/19/18 11:38 36.7 78 16 139/62 100 01/19/18 10:40 37.0 75 18 137/66 100 01/19/18 09:45 36.9 75 122/65 (84) 01/19/18 09:17 37.2 77 19 108/61 99 01/19/18 08:44 36.8 89 16 106/59 100 01/19/18 08:30 99 Room Air 01/19/18 08:22 37.4 88 105/57 100 01/19/18 08:04 36.6 91 18 111/52 Laboratory Results 24 Hours: Test 01/19/18 16:01 01/20/18 05:36 Hematocrit 28.3 % 25.9 % Hemoglobin 9.4 g/dL 8.5 g/dL White Blood Count 8.28 K/uL Red Blood Count 2.89 M/uL Mean Corpuscular Volume 89.6 fL Mean Corpuscular Hemoglobin 29.4 pg Mean Corpuscular Hemoglobin Concent 32.8 g/dl Platelet Count 105 K/uL Mean Platelet Volume 9.4 fL Neutrophils (%) (Auto) 69.5 % Lymphocytes (%) (Auto) 10.7 % Monocytes (%) (Auto) 13.2 % Eosinophils (%) (Auto) 6.2 % Basophils (%) (Auto) 0.2 % Neutrophils # (Auto) 5.75 K/uL Lymphocytes # (Auto) 0.89 K/uL Monocytes # (Auto) 1.09 K/uL Eosinophils # (Auto) 0.51 K/uL Basophils # (Auto) 0.02 K/uL Assessment & Plan Assessment: POD 3 - right foot transmetatarsal amputation. Plan: OOB with assistance, NWB Right foot Elevate right foot when in bed for swelling. Heel precautions. Continue Diet as ordered Appreciate medicine & ID input. H/H preoperatively he was 5.9, s/p 2 unit transfusion on Monday01/15/18. H/H today, 8.5 down from 9.4, will continue to monitor and recheck in AM. Plan GI scope Monday. Hypotensive this am will defer to Medicine. DVT prophylaxis: B/L thigh SCD's & foot pumps only due to low H&H. MRSA screen negative. Continue IV Abx per ID. PT/OT as ordered. SS for placement - likely after GI scope Mon and then will be able to return to [facility]. Covering for Dr. Vargas as he out of town today, but will be back tomorrow. Discharge Planning Discharge Planning: long term facility
[2018-01-20] MEDS: POTASSIUM CHLORIDE 20MEQ/15ML 473ML GT SCH (09:02)
[2018-01-20] MEDS: DOCUSATE SODIUM 100 MG/10 ML UDC GT SCH ×2 (09:02→21:50)
[2018-01-20] MEDS: LANSOPRAZOLE SOLUTAB 30 MG GT SCH (09:03)
[2018-01-20] MEDS: SUCRALFATE 1 GM/10 ML UDC PEG SCH ×4 (09:03→21:50)
[2018-01-20] MEDS: MAGNESIUM OXIDE 400 MG TAB PEG SCH ×2 (09:04→21:51)
--- NOTE | 2018-01-20 14:26 | Progress Note ---
Subjective Date of Service: January 20, 2018. Subjective Pt evaluation today including: conversation w/ patient, physical exam, lab review, review of studies, review of inpatient medication list Saw/examined the patient in room 319 He's doing well, pain controlled at the R foot complaining of nausea/vomiting - no hematemesis No abdominal pain, lack of appetite Review of Systems Respiratory: No shortness of breath Cardiac: No chest pain Abdomen: + nausea, + vomiting, No pain, No diarrhea, No constipation, No GI bleeding Musculoskeletal: No joint pain Medications Current Inpatient Medications Medications (Trade) Dose Ordered Sig/Pola Route Start Time Stop Time Status Last Admin Dose Admin Acetaminophen (Tylenol Tab) 650 mg Q6H PRN PEG 01/17/18 17:00 02/16/18 16:59 Diphenhydramine HCl (Benadryl Inj) 25 mg Q8 PRN IV 01/17/18 17:00 02/16/18 16:59 Metoclopramide HCl (Reglan Inj) 10 mg Q6H PRN IV 01/17/18 17:00 02/16/18 16:59 Ondansetron HCl (Zofran Inj) 4 mg Q6H PRN IV 01/17/18 17:00 02/16/18 16:59 Docusate Sodium (coLACE SYRUP) 100 mg BID GT 01/17/18 21:00 02/16/18 20:59 01/20/18 09:02 100 MG Dextrose/Sodium Chloride 1,000 ml @ 75 mls/hr [id number] IV 01/17/18 19:50 02/16/18 19:49 01/19/18 17:34 75 MLS/HR Folic Acid (Folvite Tab) 1 mg BID PEG 01/17/18 21:00 02/16/18 20:59 01/20/18 09:03 1 MG Magnesium Hydroxide (Milk Of Magnesia Susp) 30 ml QD PRN PEG 01/17/18 17:00 02/16/18 16:59 Magnesium Oxide (Mag-Ox Tab) 400 mg BID PEG 01/17/18 21:00 02/16/18 20:59 01/20/18 09:04 400 MG Mirtazapine (Remeron Solutab) 15 mg HS PO 01/17/18 21:00 02/16/18 20:59 01/19/18 20:22 15 MG Lansoprazole (Prevacid Solutab) 30 mg DAILY GT 01/18/18 09:00 02/17/18 08:59 01/20/18 09:03 30 MG Potassium Chloride (Mandy Ciel Elix) 10 meq DAILY GT 01/18/18 09:00 02/17/18 08:59 01/20/18 09:02 10 MEQ Sucralfate (Carafate Susp) 1 gm QID PEG 01/17/18 21:00 02/16/18 20:59 01/20/18 13:33 1 GM Oxycodone HCl (Roxicodone Immediate Rel Tab) 1 TABLET FOR PAIN RATING... Q4H PRN GT 01/17/18 17:15 01/31/18 17:14 01/18/18 06:41 10 MG Morphine Sulfate (MoRPHine SULFATE INJ) 2 mg for pain less than ... Q4HWA PRN IV 01/17/18 17:15 01/31/18 17:14 Enteral Nutritional Formula (Fibersource Hn) 700 ml DAILY@2000 PEG 01/18/18 20:00 02/17/18 19:59 01/19/18 21:58 700 ML Miscellaneous Information (Consult) 1 ea UD PRN N/A 01/19/18 15:15 02/18/18 15:14 Caspofungin 50 mg/ Sodium Chloride 260 ml @ 250 mls/hr Q24H IV 01/20/18 15:00 03/03/18 14:59 Piperacillin Sod/ Tazobactam Sod 4.5 gm/Dextrose 120 ml @ 30 mls/hr Q8H IV 01/19/18 22:00 03/02/18 21:59 01/20/18 13:33 30 MLS/HR Heparin Sodium (Porcine) (Heparin 10 Unit/ ml 5 ml Flush) 5 ml PRN PRN FLUSH 01/19/18 20:00 02/18/18 19:59 01/20/18 02:25 5 ML Objective Vital Signs Date Time Temp Pulse Resp B/P (MAP) Pulse Ox O2 Delivery O2 Flow Rate FiO2 01/20/18 08:00 Room Air 01/20/18 07:29 37.3 66 16 110/58 (75) 99 Room Air 01/20/18 00:30 Room Air 01/19/18 22:39 37.2 72 16 111/58 (75) 98 Room Air 01/19/18 17:00 Room Air 01/19/18 15:23 37.2 77 16 132/67 (88) 100 Room Air 01/19/18 14:12 36.7 84 18 133/68 (89) 100 Room Air Physical Exam General Appearance: + mild distress (secondary to nausea) Respiratory/Chest: lungs clear, normal breath sounds, no respiratory distress, no accessory muscle use Cardiovascular: regular rate, rhythm, no edema, no murmur Extremities: normal inspection, no pedal edema, + pertinent finding (R foot is wrapped/dressed) Neurologic/Psychiatric: no motor/sensory deficits, alert, normal mood/affect Laboratory Results Last 24 Hours Test 01/19/18 16:01 01/20/18 05:36 White Blood Count 11.21 K/uL 8.28 K/uL Red Blood Count 3.18 M/uL 2.89 M/uL Hemoglobin 9.4 g/dL 8.5 g/dL Hematocrit 28.3 % 25.9 % Mean Corpuscular Volume 89.0 fL 89.6 fL Mean Corpuscular Hemoglobin 29.6 pg 29.4 pg Mean Corpuscular Hemoglobin Concent 33.2 g/dl 32.8 g/dl RDW Standard Deviation 57.0 fL 59.5 fL RDW Coefficient of Variation 18.2 % 18.6 % Platelet Count 96 K/uL 105 K/uL Mean Platelet Volume 8.8 fL 9.4 fL Neutrophils (%) (Auto) 69.5 % Lymphocytes (%) (Auto) 10.7 % Monocytes (%) (Auto) 13.2 % Eosinophils (%) (Auto) 6.2 % Basophils (%) (Auto) 0.2 % Neutrophils # (Auto) 5.75 K/uL Lymphocytes # (Auto) 0.89 K/uL Monocytes # (Auto) 1.09 K/uL Eosinophils # (Auto) 0.51 K/uL Basophils # (Auto) 0.02 K/uL Immature Granulocyte % (Auto) 0.2 % Immature Granulocyte # (Auto) 0.02 K/uL Red Blood Cell Morphology Unremarkable Sodium Level 138 mmol/L Potassium Level 4.2 mmol/L Chloride Level 106 mmol/L Carbon Dioxide Level 30 mmol/L Anion Gap 2.0 mmol/L Blood Urea Nitrogen 15 mg/dl Creatinine 0.95 mg/dl Est Creatinine Clear Calc Drug Dose 69.5 ml/min Estimated GFR () 95.6 Estimated GFR (Non- 82.5 BUN/Creatinine Ratio 15.5 Random Glucose 142 mg/dl Calcium Level 8.1 mg/dl Magnesium Level 1.9 mg/dl Assessment and Plan R Foot Osteomyelitis s/p R Foot Transmetatarsal Amputation 01/20 - patient has a PICC line inserted - currently on broad spectrum abx. - cultures - Pseudomonas and multiple organisms growing - appreciate ID input 01/19 - continue IV abx. - plan to d/c as per ortho 01/18 - doing well - pain is controlled - pseudomonas on cultures; sensitivities pending - currently on Invanz and Zyvox Anemia 01/20 - s/p two units pRBCs - Hgb up to >9, and then down to 8.4 - appreciate GI input - due to nausea/vomiting, may need EGD 01/19 - s/p two units pRBCs - Hgb up to >9 - GI input - outpatient EGD 01/18 - patient's Hgb was around 5.9 prior to surgery - unsure of underlying cause - monitor Hgb; currently 7.3 - will check CBC in AM, transfuse PRN Status Post PEG tube - secondary to dysphagia issues? - currently, he's a mechanical soft diet with Fibersource through PEG tube to supplement DVT ppx - as per ortho FULL CODE
[2018-01-20] MEDS: D5W AND 1/2NSS 1,000 ML IV SCH (14:36)
[2018-01-20] MEDS: CASPOFUNGIN INJ 50 MG in SODIUM CHLORIDE 0.9% 250ML 250 ML IV SCH (14:37)
[2018-01-20 15:09] VITALS: BP 124/72; PULSE 72; TEMP 36.5; O2SAT 99
[2018-01-20] MEDS ORDERED: FIBERSOURCE HN 1000ML BAG GT SCH (20:00)
[2018-01-20] MEDS: FIBERSOURCE HN 1000ML BAG PEG SCH (21:50)
[2018-01-20] MEDS: MIRTAZAPINE SOLTAB 15 MG PO SCH (21:51)
[2018-01-20 23:20] VITALS: BP 106/62; PULSE 70; TEMP 36.9; O2SAT 99
[2018-01-21] MEDS: D5W AND 1/2NSS 1,000 ML IV SCH ×2 (03:52→17:15)
[2018-01-21 05:29] LABS: HEMATOCRIT 25.3 % (42-52); HEMOGLOBIN 8.4 g/dL (14.0-18.0); MEAN CELL VOLUME 90.4 fL (80-100); MEAN CORPUSCULAR HGB CONC 33.2 g/dl (32-36); MEAN PLATELET VOLUME 8.5 fL (7.4-10.4); PLATELET COUNT 112 K/uL (130-400); RED CELL DISTRIBUTION WIDTH SD 58.6 fL (36.4-46.3); WHITE BLOOD COUNT 8.19 K/uL (4.8-10.8)
[2018-01-21 05:47] LABS: CALCIUM 8.3 mg/dl (8.5-10.1); CREATININE 0.93 mg/dl (0.60-1.40); POTASSIUM 4.2 mmol/L (3.5-5.1)
[2018-01-21] MEDS: PIPERACILL/TAZOBAC IV 4.5 GM in D5W 100 ML IV SCH ×3 (05:48→22:17)
[2018-01-21 05:54] LABS: PHOSPHORUS 2.8 mg/dl (2.5-4.9)
[2018-01-21] MEDS: MAGNESIUM OXIDE 400 MG TAB PEG SCH ×2 (09:00→20:36)
[2018-01-21] MEDS: SUCRALFATE 1 GM/10 ML UDC PEG SCH ×4 (09:00→20:35)
[2018-01-21] MEDS: POTASSIUM CHLORIDE 20MEQ/15ML 473ML GT SCH (09:00)
[2018-01-21] MEDS: DOCUSATE SODIUM 100 MG/10 ML UDC GT SCH ×2 (09:00→20:35)
[2018-01-21] MEDS: LANSOPRAZOLE SOLUTAB 30 MG GT SCH (09:00)
[2018-01-21 09:41] VITALS: BP 110/63; PULSE 74; TEMP 37.3; O2SAT 98
[2018-01-21] MEDS: CASPOFUNGIN INJ 50 MG in SODIUM CHLORIDE 0.9% 250ML 250 ML IV SCH (14:39)
[2018-01-21 15:07] VITALS: BP 121/70; PULSE 63; TEMP 36.6; O2SAT 100
--- NOTE | 2018-01-21 15:07 | Progress Note ---
Subjective Date of Service: January 21, 2018. Subjective Pt evaluation today including: conversation w/ patient, physical exam, lab review, review of studies, review of inpatient medication list Saw/examined the patient in room 319 He's doing okay, pain controlled Tolerating diet at this time No other issues to note Review of Systems Constitutional: No fever, No chills Respiratory: No cough, No sputum, No shortness of breath Cardiac: No chest pain, No edema, No palpitations Abdomen: No pain, No nausea, No vomiting, No diarrhea Musculoskeletal: No joint pain Medications Current Inpatient Medications Medications (Trade) Dose Ordered Sig/Pola Route Start Time Stop Time Status Last Admin Dose Admin Acetaminophen (Tylenol Tab) 650 mg Q6H PRN PEG 01/17/18 17:00 02/16/18 16:59 Diphenhydramine HCl (Benadryl Inj) 25 mg Q8 PRN IV 01/17/18 17:00 02/16/18 16:59 Metoclopramide HCl (Reglan Inj) 10 mg Q6H PRN IV 01/17/18 17:00 02/16/18 16:59 Ondansetron HCl (Zofran Inj) 4 mg Q6H PRN IV 01/17/18 17:00 02/16/18 16:59 Docusate Sodium (coLACE SYRUP) 100 mg BID GT 01/17/18 21:00 02/16/18 20:59 01/21/18 09:00 100 MG Dextrose/Sodium Chloride 1,000 ml @ 75 mls/hr [id number] IV 01/17/18 19:50 02/16/18 19:49 01/21/18 03:52 75 MLS/HR Folic Acid (Folvite Tab) 1 mg BID PEG 01/17/18 21:00 02/16/18 20:59 01/21/18 09:00 1 MG Magnesium Hydroxide (Milk Of Magnesia Susp) 30 ml QD PRN PEG 01/17/18 17:00 02/16/18 16:59 Magnesium Oxide (Mag-Ox Tab) 400 mg BID PEG 01/17/18 21:00 02/16/18 20:59 01/21/18 09:00 400 MG Mirtazapine (Remeron Solutab) 15 mg HS PO 01/17/18 21:00 02/16/18 20:59 01/20/18 21:51 15 MG Lansoprazole (Prevacid Solutab) 30 mg DAILY GT 01/18/18 09:00 02/17/18 08:59 01/21/18 09:00 30 MG Potassium Chloride (Mandy Ciel Elix) 10 meq DAILY GT 01/18/18 09:00 02/17/18 08:59 01/21/18 09:00 10 MEQ Sucralfate (Carafate Susp) 1 gm QID PEG 01/17/18 21:00 02/16/18 20:59 01/21/18 13:54 1 GM Oxycodone HCl (Roxicodone Immediate Rel Tab) 1 TABLET FOR PAIN RATING... Q4H PRN GT 01/17/18 17:15 01/31/18 17:14 01/18/18 06:41 10 MG Morphine Sulfate (MoRPHine SULFATE INJ) 2 mg for pain less than ... Q4HWA PRN IV 01/17/18 17:15 01/31/18 17:14 Enteral Nutritional Formula (Fibersource Hn) 700 ml DAILY@2000 PEG 01/18/18 20:00 02/17/18 19:59 01/20/18 21:50 700 ML Miscellaneous Information (Consult) 1 ea UD PRN N/A 01/19/18 15:15 02/18/18 15:14 Caspofungin 50 mg/ Sodium Chloride 260 ml @ 250 mls/hr Q24H IV 01/20/18 15:00 03/03/18 14:59 01/21/18 14:39 250 MLS/HR Piperacillin Sod/ Tazobactam Sod 4.5 gm/Dextrose 120 ml @ 30 mls/hr Q8H IV 01/19/18 22:00 03/02/18 21:59 01/21/18 13:54 30 MLS/HR Heparin Sodium (Porcine) (Heparin 10 Unit/ ml 5 ml Flush) 5 ml PRN PRN FLUSH 01/19/18 20:00 02/18/18 19:59 01/21/18 05:17 5 ML Objective Vital Signs Date Time Temp Pulse Resp B/P (MAP) Pulse Ox O2 Delivery O2 Flow Rate FiO2 01/21/18 09:41 37.3 74 16 110/63 (79) 98 01/21/18 07:56 Room Air 01/20/18 23:47 Room Air 01/20/18 23:20 36.9 70 16 106/62 (77) 99 Room Air 01/20/18 15:50 Room Air 01/20/18 15:09 36.5 72 16 124/72 (89) 99 Physical Exam General Appearance: no apparent distress Respiratory/Chest: lungs clear, normal breath sounds, no respiratory distress, no accessory muscle use Cardiovascular: regular rate, rhythm, no edema, no murmur Abdomen: + pertinent finding (PEG tube) Extremities: + pertinent finding (R foot dressed/wrapped) Neurologic/Psychiatric: no motor/sensory deficits, alert, normal mood/affect Laboratory Results Last 24 Hours Test 01/21/18 05:12 White Blood Count 8.19 K/uL Red Blood Count 2.80 M/uL Hemoglobin 8.4 g/dL Hematocrit 25.3 % Mean Corpuscular Volume 90.4 fL Mean Corpuscular Hemoglobin 30.0 pg Mean Corpuscular Hemoglobin Concent 33.2 g/dl RDW Standard Deviation 58.6 fL RDW Coefficient of Variation 18.0 % Platelet Count 112 K/uL Mean Platelet Volume 8.5 fL Sodium Level 139 mmol/L Potassium Level 4.2 mmol/L Chloride Level 104 mmol/L Carbon Dioxide Level 30 mmol/L Anion Gap 5.0 mmol/L Blood Urea Nitrogen 14 mg/dl Creatinine 0.93 mg/dl Est Creatinine Clear Calc Drug Dose 71.0 ml/min Estimated GFR () 98.1 Estimated GFR (Non- 84.6 BUN/Creatinine Ratio 15.4 Random Glucose 142 mg/dl Calcium Level 8.3 mg/dl Phosphorus Level 2.8 mg/dl Magnesium Level 1.8 mg/dl Assessment and Plan R Foot Osteomyelitis s/p R Foot Transmetatarsal Amputation 01/21 - patient doing well - if Hgb is stable, can likely d/c on IV abx as per ID - monitor Hgb, outpatient GI follow-up for EGD 01/20 - patient has a PICC line inserted - currently on broad spectrum abx. - cultures - Pseudomonas and multiple organisms growing - appreciate ID input 01/19 - continue IV abx. - plan to d/c as per ortho 01/18 - doing well - pain is controlled - pseudomonas on cultures; sensitivities pending - currently on Invanz and Zyvox Anemia 01/20 - s/p two units pRBCs - Hgb up to >9, and then down to 8.4 - appreciate GI input - due to nausea/vomiting, may need EGD 01/19 - s/p two units pRBCs - Hgb up to >9 - GI input - outpatient EGD 01/18 - patient's Hgb was around 5.9 prior to surgery - unsure of underlying cause - monitor Hgb; currently 7.3 - will check CBC in AM, transfuse PRN Status Post PEG tube - secondary to dysphagia issues? - currently, he's a mechanical soft diet with Fibersource through PEG tube to supplement DVT ppx - as per ortho FULL CODE
--- NOTE | 2018-01-21 15:50 | PROGRESS NOTE ---
DATE: 01/21/2018 He is sitting up without any issues. He denies chest pain, shortness of breath. His pain is well-controlled. He has not been lightheaded or dizzy. He is afebrile. His vital signs are stable. Urine output is excellent. His cultures are noted and have grown out Pseudomonas, yeast, and Staph. Dr. Willams has been adjusting his antibiotics. His nasal MRSA swab was negative. Dressing is clean and dry. GI's input is appreciated and the patient will be referred back to primary care doctor for further evaluation, treatment, workup of anemia with EGD, etc., as indicated. He has had this worked up previously per the GI note. We will plan on changing his dressing tomorrow to evaluate the wound and continue his IV antibiotics. We will continue early mobility and DVT prophylaxis with mechanical devices. Given his anemia and low platelet count, use of anticoagulants is of concern.
[2018-01-21] MEDS ORDERED: FIBERSOURCE HN 1000ML BAG PEG SCH (20:00)
[2018-01-21] MEDS: MIRTAZAPINE SOLTAB 15 MG PO SCH (20:36)
[2018-01-21 23:28] VITALS: BP 101/58; PULSE 71; TEMP 36.9; O2SAT 99
[2018-01-22] MEDS ORDERED: VANCOMYCIN IV 1,000 MG in SODIUM CHLORIDE 0.9% 250ML 250 ML IV SCH (01:00)
[2018-01-22 05:58] LABS: HEMOGLOBIN 8.2 g/dL (14.0-18.0); MEAN CELL VOLUME 91.2 fL (80-100); MEAN CORPUSCULAR HEMOGLOBIN 29.9 pg (25-34); MEAN CORPUSCULAR HGB CONC 32.8 g/dl (32-36); MEAN PLATELET VOLUME 8.9 fL (7.4-10.4); PLATELET COUNT 138 K/uL (130-400); RED CELL DISTRIBUTION WIDTH SD 56.2 fL (36.4-46.3); WHITE BLOOD COUNT 7.82 K/uL (4.8-10.8)
[2018-01-22 06:20] LABS: CREATININE 0.99 mg/dl (0.60-1.40); POTASSIUM 4.1 mmol/L (3.5-5.1)
[2018-01-22] MEDS: PIPERACILL/TAZOBAC IV 4.5 GM in D5W 100 ML IV SCH ×2 (06:20→14:36)
[2018-01-22] MEDS: D5W AND 1/2NSS 1,000 ML IV SCH (06:20)
[2018-01-22 08:12] VITALS: BP 99/61; PULSE 101; TEMP 37.5; O2SAT 95
[2018-01-22] MEDS: SUCRALFATE 1 GM/10 ML UDC PEG SCH ×2 (08:49→13:32)
[2018-01-22] MEDS: MAGNESIUM OXIDE 400 MG TAB PEG SCH (08:49)
[2018-01-22] MEDS: DOCUSATE SODIUM 100 MG/10 ML UDC GT SCH (08:49)
[2018-01-22] MEDS: POTASSIUM CHLORIDE 20MEQ/15ML 473ML GT SCH (08:49)
[2018-01-22] MEDS: LANSOPRAZOLE SOLUTAB 30 MG GT SCH (08:49)
--- NOTE | 2018-01-22 08:55 | Orthopedic Progress Note ---
Orthopedic Progress Note Date of Service January 22, 2018. Subjective Post OP Day: 5 Reports: feeling well, pain controlled w PO medications, Denies: complaints, chest pain, SOB, nausea / vomiting, light headedness, calf pain Objective calves soft nontender, capillary refill less than 2 sec., dressing C/D/I, incision C/D/I, A&O x3 Mild edema right foot Date Time Temp Pulse Resp B/P (MAP) Pulse Ox O2 Delivery O2 Flow Rate FiO2 01/22/18 08:12 37.5 101 18 99/61 (74) 95 Room Air 01/22/18 07:25 Room Air 01/22/18 00:25 Room Air 01/21/18 23:28 36.9 71 16 101/58 (72) 99 Room Air 01/21/18 15:35 Room Air 01/21/18 15:07 36.6 63 20 121/70 (87) 100 Room Air 01/21/18 09:41 37.3 74 16 110/63 (79) 98 Laboratory Results 24 Hours: Test 01/22/18 05:43 Hematocrit 25.0 % Hemoglobin 8.2 g/dL Assessment & Plan Assessment: POD 5 - right foot transmetatarsal amputation. Plan: OOB with assistance, Will order Post op shoe for right foot. May be out of bed for transfers from bed to chair. WBAT on right heel with post op shoe on. No ambulation at this time. Elevate right foot when in bed for swelling. Heel precautions. Continue Diet as ordered Appreciate medicine & ID input. H/H Stable. GI recommend follow up with family doctor - outpatient EGD if necessary. DVT prophylaxis: B/L thigh SCD's, mobilization Continue IV Abx per ID. - Will discuss with ID how long to continue antibiotics , what labs to be followed, etc. PT/OT as ordered. Discharge today to [facility]. Follow up with Dr. Vargas on . Discharge Planning Discharge Planning: senior care facility Pain Management: Ultram DVT Prophylaxis: TEDs, SCDs
--- NOTE | 2018-01-22 08:55 | Progress Note ---
Progress Note Date of Service January 22, 2018. Progress Note No problems. Pain controlled. Afebrile vital signs stable. Hematocrit 25. Platelets within normal limits. Dressing changed. He will fine. Lateral ulcer benign. Some swelling but no fluctuance or fluid collection. The central portion of the dorsal skin flap shows an area of 1.5 to 2 cm x 4-5 cm of darker coloration possibly consistent with evolving epidermal necrosis. Redressed with abundant padding. Will check with Dr. Willams regarding antibiotic type duration route. Follow-up with me next week postop shoe. Can weight-bear as tolerated stand pivot transfer use walker. I do not want him doing lots of ambulating at this time. Focus on elevating and getting wound to heal. DVT prophylaxis with mobility. We will hold on any chemoprophylaxis given his platelet dysfunction and anemia.
--- NOTE | 2018-01-22 09:01 | Discharge Instructions ---
Discharge Instructions Date of Service January 22, 2018. Admission Reason for Admission: Right Foot Osteomyelitis Discharge Discharge Diagnosis / Problem: Right foot osteomyelitis Discharge Goals Goal(s): Decrease discomfort, Improve function, Increase independence Activity Recommendations Activity Level: OOB In Chair, Assistance Required (walker) Therapies: Physical Therapy, Weight Bearing Status (WBAT Right heel with post op shoe on for transfers only; no ambulation) Weightbearing Status: Left weightbearing (as tolerated) . Additional Information Patient informed of condition: Yes Advance Directives: No DNR: No Level of Care: Skilled Communicable Disease: Yes Prognosis: Stable Fields Catheter: No Instructions / Follow-Up Instructions / Follow-Up DIET: * Resume previous diet. MEDICATIONS: * Please take your prescriptions as instructed at your pre-op appointment and/ or see medication discharge instructions listed above. * If concerns develop, call your physician's office at . SPECIAL CARE INSTRUCTIONS: * Elevate right foot above your heart to relieve swelling. * Keep dressing on right foot at all times. Please do daily dressing changes. Okay to wash with soap and water, pat incision dry, redress with xeroform, 4x4 's, ABD, Rolled gauze and an TRISTAN bandage to above his ankle. * Keep bilateral heels off of bed. * No weight on his right foot. Use walker to assist with ambulation. * Out of bed to chair, transfers only from bed to chair. * Post op shoe when out of bed. * Allowed for full ankle range of motion as tolerated. * Sequential compression devices for DVT prophylaxis. No NSAIDS or anti- platelets, coumadin, lovenox or heparin due to acute on chronic anemia. * Your surgical extremity may be discolored due to prepping agents used on the skin. A bluish-green tint is a normal variant and should not cause alarm. Call your doctor at [phone] if: * Temperature above 101 degrees * Pain not relieved by pain medicine ordered * There is increased drainage or redness from any incision * You have any unanswered questions, problems or concerns. FOLLOW UP VISIT: * If not already scheduled, please call the office at to schedule a follow-up appointment. * You have a follow up appointment on 01/29/18 at 1:45 p.m. * Please call Dr. Willams at Infectious Disease for a follow up appointment in approximately 2 weeks. Call [phone] to schedule appointment. Current Hospital Diet Patient's current hospital diet: Regular Diet Discharge Diet Recommended Diet: Regular Diet (soft) Diet Texture: Mechanical Soft (ground) Procedures Procedures Performed: transmetatarsal amputation Pending Studies Studies pending at discharge: no Physician Orders On Transfer Dressing Changes: Please change dressings every other day, apply xeroform, 4x4's, ABD's, rolled gauze and Tristan bandage. IV Therapy: Caspofungin, zosyn, and vancomycin as ordered through PICC Line right arm Vital Signs: per routine Additional Orders: WBAT on right heel with post op shoe, for transfers only. Use walker to assist with transfers from bed to chair, no full ambulation. OBTAIN WEEKLY CBC, BMP AND VANCO TROUGH WHILE ON IV MEDICATIONS. Medical Emergencies . Who to Call and When: Medical Emergencies: If at any time you feel your situation is an emergency, please call 911 immediately. . Non-Emergent Contact Non-Emergency issues call your: Surgeon Call Non-Emergent contact if: temperature is above 101, your pain is not controlled, wound has increased drainage, wound has increased redness, wound has increased pain, you have any medication questions . . "Provider Documentation" section prepared by Dipika Davalos. . Core Measure Problem Core Measures: None
[2018-01-22 10:47] VITALS: BP 99/61; PULSE 101; TEMP 37.5; O2SAT 95
[2018-01-22] MEDS ORDERED: VANCOMYCIN CONSULT ACTIVE PRN (12:00)
--- NOTE | 2018-01-22 12:18 | Progress Note ---
Progress Note Date of Service January 22, 2018. Progress Note Discussed antibiotic coverage with Dr. Willams. Cultures growing out Pseudomonas, MRSA and Yeast not Yessenia. He recommended adding Vancomycin. Will continue Zosyn and capsofungin as well. Will continue IV antibiotics x 6 weeks and will obtain weekly, CBC, BMP, and vanco trough.
[2018-01-22] MEDS ORDERED: PIPE1INJ11 IV (12:24)
[2018-01-22] MEDS ORDERED: [UNRECOGNIZED DRUG - CODE] IV (12:24)
[2018-01-22] MEDS ORDERED: VANCOMYCIN IV 1,500 MG in SODIUM CHLORIDE 0.9% 500ML 500 ML IV ONE (12:45)
--- NOTE | 2018-01-22 12:49 | Pharmacy Progress Note ---
Pharmacy Antibiotic Consult Date of Service: January 22, 2018. Pharmacy Dosing Scope Pharmacy is consulted to initiate vancomycin IV dosing therapy, order appropriate labs and adjust drug dose/frequency. Subjective The patient is a 67 year old male admitted on January 17, 2018 at 06:30. Objective Height (Feet): 6 Height (Inches): 0.00 Weight (Kilograms): 65.100 Lab Results (24hrs): Test 01/22/18 05:43 White Blood Count 7.82 K/uL (4.8-10.8) Red Blood Count 2.74 M/uL (4.7-6.1) Hemoglobin 8.2 g/dL (14.0-18.0) Hematocrit 25.0 % (42-52) Mean Corpuscular Volume 91.2 fL (80-100) Mean Corpuscular Hemoglobin 29.9 pg (25-34) Mean Corpuscular Hemoglobin Concent 32.8 g/dl (32-36) RDW Standard Deviation 56.2 fL (36.4-46.3) RDW Coefficient of Variation 17.0 % (11.5-14.5) Platelet Count 138 K/uL (130-400) Mean Platelet Volume 8.9 fL (7.4-10.4) Sodium Level 139 mmol/L (136-145) Potassium Level 4.1 mmol/L (3.5-5.1) Chloride Level 104 mmol/L (98-107) Carbon Dioxide Level 30 mmol/L (21-32) Anion Gap 5.0 mmol/L (3-11) Blood Urea Nitrogen 14 mg/dl (7-18) Creatinine 0.99 mg/dl (0.60-1.40) Est Creatinine Clear Calc Drug Dose 66.7 ml/min Estimated GFR () 91.0 Estimated GFR (Non- 78.5 BUN/Creatinine Ratio 14.2 (10-20) Random Glucose 133 mg/dl (70-99) Calcium Level 8.0 mg/dl (8.5-10.1) Micro Results: Date/Time Source Procedure Growth Status 01/17/18 16:00 Bone Foot Right Gram Stain - Final Complete 01/17/18 16:00 Bacterial Culture - Final Pseudomonas Aeruginosa Yeast Not Yessenia Albicans Staph. Aureus Mrsa Complete 01/17/18 19:20 Nasal MRSA DNA Surveillance Screen - Final Specimen Negative for MRSA by DNA Probe Complete 01/17/18 16:00 Tissue Foot Right Gram Stain - Final Complete 01/17/18 16:00 Bacterial Culture - Final Pseudomonas Aeruginosa Yeast Not Yessenia Albicans Enterococcus Faecalis Complete Assessment & Plan Assessment: 67 yo male on zosyn/caspofungin for bone/tissue culture growing enterococcus/ pseudomonas, now growing MRSA Starting vancomycin for MRSA infection. Plan: Loading dose: 1500 mg IV X 1 dose then: 1000 mg (15 mg/kg) IV every 12 hours. * Dosing at half life, more aggressive dosing for MRSA bone infection Goal trough level estimate: between 17-20 mcg/mL. Trough level ordered for 01/24 @ 1230. Pharmacy will continue to follow and will adjust dose/frequency as necessary. Thank you
[2018-01-22] MEDS ORDERED: VANC1INJ94 IV (13:06)
[2018-01-22] MEDS: CASPOFUNGIN INJ 50 MG in SODIUM CHLORIDE 0.9% 250ML 250 ML IV SCH (13:25)
--- NOTE | 2018-01-22 15:32 | Infectious Disease Progress Nt ---
Progress Note Date of Service January 22, 2018. Subjective Pt evaluation today including: conversation w/ patient, physical exam, chart review, lab review, review of studies, conversation w/ integrity consultant, review of inpatient medication list Patient offers no new complaints today. Remains afebrile. Pain controlled. Tolerating antibiotics without apparent difficulty. All Other Systems: Reviewed and Negative Medications Current Inpatient Medications Medications (Trade) Dose Ordered Sig/Pola Route Start Time Stop Time Status Last Admin Dose Admin Acetaminophen (Tylenol Tab) 650 mg Q6H PRN PEG 01/17/18 17:00 02/16/18 16:59 Diphenhydramine HCl (Benadryl Inj) 25 mg Q8 PRN IV 01/17/18 17:00 02/16/18 16:59 Metoclopramide HCl (Reglan Inj) 10 mg Q6H PRN IV 01/17/18 17:00 02/16/18 16:59 Ondansetron HCl (Zofran Inj) 4 mg Q6H PRN IV 01/17/18 17:00 02/16/18 16:59 Docusate Sodium (coLACE SYRUP) 100 mg BID GT 01/17/18 21:00 02/16/18 20:59 01/22/18 08:49 100 MG Dextrose/Sodium Chloride 1,000 ml @ 75 mls/hr [id number] IV 01/17/18 19:50 02/16/18 19:49 01/22/18 06:20 75 MLS/HR Folic Acid (Folvite Tab) 1 mg BID PEG 01/17/18 21:00 02/16/18 20:59 01/22/18 08:50 1 MG Magnesium Hydroxide (Milk Of Magnesia Susp) 30 ml QD PRN PEG 01/17/18 17:00 02/16/18 16:59 Magnesium Oxide (Mag-Ox Tab) 400 mg BID PEG 01/17/18 21:00 02/16/18 20:59 01/22/18 08:49 400 MG Mirtazapine (Remeron Solutab) 15 mg HS PO 01/17/18 21:00 02/16/18 20:59 01/21/18 20:36 15 MG Lansoprazole (Prevacid Solutab) 30 mg DAILY GT 01/18/18 09:00 02/17/18 08:59 01/22/18 08:49 30 MG Potassium Chloride (Mandy Ciel Elix) 10 meq DAILY GT 01/18/18 09:00 02/17/18 08:59 01/22/18 08:49 10 MEQ Sucralfate (Carafate Susp) 1 gm QID PEG 01/17/18 21:00 02/16/18 20:59 01/22/18 13:32 1 GM Oxycodone HCl (Roxicodone Immediate Rel Tab) 1 TABLET FOR PAIN RATING... Q4H PRN GT 01/17/18 17:15 01/31/18 17:14 01/18/18 06:41 10 MG Morphine Sulfate (MoRPHine SULFATE INJ) 2 mg for pain less than ... Q4HWA PRN IV 01/17/18 17:15 01/31/18 17:14 Miscellaneous Information (Consult) 1 ea UD PRN N/A 01/19/18 15:15 02/18/18 15:14 Caspofungin 50 mg/ Sodium Chloride 260 ml @ 250 mls/hr Q24H IV 01/20/18 15:00 03/03/18 14:59 01/22/18 13:25 250 MLS/HR Piperacillin Sod/ Tazobactam Sod 4.5 gm/Dextrose 120 ml @ 30 mls/hr Q8H IV 01/19/18 22:00 03/02/18 21:59 01/22/18 14:36 30 MLS/HR Heparin Sodium (Porcine) (Heparin 10 Unit/ ml 5 ml Flush) 5 ml PRN PRN FLUSH 01/19/18 20:00 02/18/18 19:59 01/22/18 11:13 5 ML Enteral Nutritional Formula (Fibersource Hn) 700 ml DAILY@2000 PEG 01/21/18 20:00 02/20/18 19:59 01/21/18 20:34 700 ML Miscellaneous Information (Consult) 1 ea UD PRN N/A 01/22/18 12:00 02/21/18 11:59 Vancomycin HCl 1000 mg/Sodium Chloride 270 ml @ 125 mls/hr Q12H IV 01/23/18 01:00 03/06/18 00:59 Objective Vital Signs Date Time Temp Pulse Resp B/P (MAP) Pulse Ox O2 Delivery O2 Flow Rate FiO2 01/22/18 10:47 37.5 101 18 95 Room Air 01/22/18 08:12 37.5 101 18 99/61 (74) 95 Room Air 01/22/18 07:25 Room Air 01/22/18 00:25 Room Air 01/21/18 23:28 36.9 71 16 101/58 (72) 99 Room Air 01/21/18 15:35 Room Air Physical Exam General Appearance: WD/WN, no apparent distress Eyes: normal inspection, EOMI ENT: normal ENT inspection, pharynx normal Neck: supple, no JVD, no carotid bruits Respiratory/Chest: chest non-tender, lungs clear, normal breath sounds, no respiratory distress Cardiovascular: regular rate, rhythm, no gallop, no murmur Abdomen: normal bowel sounds, non tender, soft, no organomegaly Extremities: non-tender, no calf tenderness Neurologic/Psychiatric: alert, oriented x 3 Skin: normal color, no rash, + pertinent finding (dressing intact) Lymphatic: no adenopathy Laboratory Results RUN DATE: 01/22/18 [facility] PAGE 1 RUN TIME: 1111 Specimen Inquiry PATIENT: RICHIE ANNE LOC: [place] U # : [id number] AGE/SX: 67/M ROOM: 19 REG : 01/17/[address]: Guido Vargas M.D. : 1950 BED: 1 DIS : STATUS: ADM IN TLOC: SPEC #: [id number] BRIGIDA: 01/17/18 STATUS: COMP REQ #: [id number] RECD: 01/17/18 [facility] DR: Guido Vargas M.D. SOURCE: BONE ENTR: 01/17/[address]: Anthony Pathak V. D.ODean SPDESC: FOOT RIGHT Bradley Willams MD, Minh Hu M.D. ORDERED: AER/GUERDA CULTSMR Procedure Result Verified Site GRAM STAIN Final 01/18/18-0819 RESULT FEW WBCs SEEN NO ORGANISMS SEEN OR AER/GUERDA CULT Final 01/22/18-1111 Organism 1 PSEUDOMONAS AERUGINOSA QUANITY MODERATE SENS SENSITIVITY TO FOLLOW ANAS NO ANAEROBES ISOLATED. Organism 2 YEAST NOT YESSENIA ALBICANS QUANITY RARE SENS NO SENSITIVITY TO FOLLOW Organism 3 STAPH. AUREUS MRSA QUANITY RARE SENS SENSITIVITY TO FOLLOW SENSITIVITY RESULT INDICATES A METHICILLIN RESISTANT STAPH. AUREUS. PHONED TO 3-EAST (MARIA ANTONIA CAMPBELL) AND IC (EVAN ESPINOZAELPIDIO) ON 01/22/18 AT 0817 BY Cortes Pizano. Results were verbalized back to LIU. CONTINUED ON NEXT PAGE RUN DATE: 01/22/18 [facility] PAGE 2 RUN TIME: 1111 Specimen Inquiry SPEC: [id number] PATIENT: DAYANARICHIE Vitaliy [id number] ( Continued) Procedure Result Verified Site OR AER/GUERDA FU Final (continued) 01/22/18-1111 PSEUD AERG MRSA M.I.C. RX M.I.C. RX --------- ------ --------- ------ TRIMET/SULFA <=0.5/9.5 S * OXACILLIN >2 R CEFTAZIDIME 16 I CEFEPIME 16 I IMIPENEM <=1 S AZTREONAM >16 R VANCOMYCIN 2 S GENTAMICIN <=4 S TOBRAMYCIN <=4 S ERYTHROMYCIN >4 R TETRACYCLINE <=4 S AMIKACIN <=16 S CIPROFLOXACIN <=1 S LEVOFLOXACIN <=2 S CLINDAMYCIN >4 R DAPTOMYCIN <=0.5 S PIP/TAZO 64 S RIFAMPIN <=1 S 1. PSEUDOMONAS AERUGINOSA Target Route Dose RX AB Cost M.I.C. IQ ------ ----- ------ -- ------ -------- - ------ CEFTAZIDIME I 16 CEFEPIME I 16 IMIPENEM S <=1 AZTREONAM R >16 GENTAMICIN S <=4 TOBRAMYCIN S <=4 AMIKACIN S <=16 CIPROFLOXACIN S <=1 LEVOFLOXACIN S <=2 PIP/TAZO S 64 3. STAPH. AUREUS MRSA Target Route Dose RX AB Cost M.I.C. IQ ------ ----- ------ -- ------ -------- - ------ TRIMET/SULFA S <=0.5/ 9.5 * OXACILLIN R >2 VANCOMYCIN S 2 ERYTHROMYCIN R >4 TETRACYCLINE S <=4 CLINDAMYCIN R >4 DAPTOMYCIN S <=0.5 RIFAMPIN S <=1 CONTINUED ON NEXT PAGE RUN DATE: 01/22/18 [facility] PAGE 3 RUN TIME: 1111 Specimen Inquiry Last 24 Hours Test 01/22/18 05:43 White Blood Count 7.82 K/uL Red Blood Count 2.74 M/uL Hemoglobin 8.2 g/dL Hematocrit 25.0 % Mean Corpuscular Volume 91.2 fL Mean Corpuscular Hemoglobin 29.9 pg Mean Corpuscular Hemoglobin Concent 32.8 g/dl RDW Standard Deviation 56.2 fL RDW Coefficient of Variation 17.0 % Platelet Count 138 K/uL Mean Platelet Volume 8.9 fL Sodium Level 139 mmol/L Potassium Level 4.1 mmol/L Chloride Level 104 mmol/L Carbon Dioxide Level 30 mmol/L Anion Gap 5.0 mmol/L Blood Urea Nitrogen 14 mg/dl Creatinine 0.99 mg/dl Est Creatinine Clear Calc Drug Dose 66.7 ml/min Estimated GFR () 91.0 Estimated GFR (Non- 78.5 BUN/Creatinine Ratio 14.2 Random Glucose 133 mg/dl Calcium Level 8.0 mg/dl Assessment and Plan 67-year-old male with right foot osteomyelitis in the setting of severe peripheral arterial disease, now status post transmetatarsal amputation with cultures growing Pseudomonas, MRSA, and non albicans Yessenia. Patient to be treated with vancomycin, Zosyn and caspofungin. Will follow.
[2018-01-23] MEDS ORDERED: VANCOMYCIN IV 1,000 MG in SODIUM CHLORIDE 0.9% 250ML 250 ML IV SCH (01:00)
--- NOTE | 2018-01-23 12:02 | Discharge Summary ---
Discharge Summary Date of Service January 23, 2018. Discharge Summary Admission Date: January 17, 2018 at 06:30 Discharge Date: January 22, 2018 Discharge Disposition: senior care facility ([facility]) Principal Diagnosis: Right foot wound/osteomyelitis Secondary Diagnoses/Problems: 1. Acute kidney failure 2. Dysphagia 3. Generalized weakness 4. Hypertension 5. Peripheral vascular disease 6. Esophageal obstruction 7. Nicotine dependence with chewing tobacco 8. Gastroesophageal reflux disease without esophagitis 9. Major depressive disorder 10. Anxiety disorder 11. Iron deficiency anemia 12. Benign prostatic hyperplasia 13. Ambulatory dysfunction 14. History of enterocolitis due to Clostridium difficile 15. History of pressure sores in the left heel, sacral region and right foot 16. Adult failure to thrive 17. Cachexia 18. History of pneumonia 19. Indwelling PEG tube and Fields catheter Procedures: Transmetatarsal amputation of his right foot on January 17, [address] Guido Vargas Consultations: Hospitalist service for medical management, infectious disease for antibiotic recommendations, gastroenterology for acute on chronic anemia. Pending Studies/Follow-Up: Patient has a scheduled follow-up with Dr. Guido Vargas on January 29, 2018 at 1: 45 PM. He should follow-up with Dr. Willams and disc disease in approximately 2-3 weeks. residential needs to call for appointment. Medication Reconciliation New Medications: Caspofungin Acetate (Caspofungin Acetate) 50 Mg Inj 50 MG IV Q24H for 42 Days Piperacillin Sodium-Tazobactam (Zosyn) 1 Inj Inj 4.5 GM IV Q8H for 42 Days Vancomycin HCl in Sodium Chlor (VANCOMYCIN in NSS) 1 Inj Inj 1 GM IV Q12 for 42 Days, BAG In ml NSS Continued Medications: Acetaminophen (Tylenol) 325 Mg Tab 650 MG PEG TID, TAB Enteral Nutrition Formula (Jevity 1.5 Dipak) 1 Can Liqd 1 CAN GT HS, 60cc/hr, CAN Folic Acid (Folvite) 1 Mg Tab 1 TAB PEG BID for 90 Days, #180 TAB 1 Refill Magnesium Hydroxide (Milk Of Magnesia) 30 Ml Susp 30 ML PEG QD PRN for Constipation, ML Magnesium Oxide (Mag-Ox) 400 Mg Tab 400 MG PEG BID, TAB Mirtazapine Soltab (Remeron Soltab) 15 Mg Soltab 15 MG PEG HS, TAB Multivitamin (Multivitamin) Tab 1 TAB PEG DAILY, TAB Pantoprazole (Protonix) 40 Mg Tab 40 MG PEG DAILY, #30 TAB Potassium Chloride (Micro-K Ext Rel) 10 Meq Capcr 10 MEQ PEG DAILY, CAP Saccharomyces Boulardii (Probiotic) 250 Mg Cap 1 CAP PEG DAILY Sucralfate (Carafate) 1 Gm/10 Ml Lexi 10 ML PEG QID for 30 Days, #1200 ML Discontinued Medications: Linezolid (Zyvox) 600 Mg Tab 600 MG PEG DAILY, TAB [neuropenum] () 1 GM IV DAILY Hospital Course Patient was admitted to [facility] on January 17, 2018 after undergoing a transmetatarsal indentation of his right foot for osteomyelitis by Dr. Vargas. He had general anesthesia. He tolerated the procedure well without any intraoperative complications. Postoperatively he was allowed out of bed for transfers from bed to chair, nonweightbearing right lower extremity. Strict instructions for elevation and heel precautions were provided. Hospitalist consultation was placed for postoperative medical management. We also consult infectious disease for antibiotic recommendations for treatment of his osteomyelitis and wound infection. On postoperative day 1 he did develop acute on chronic anemia, but he remained asymptomatic and his H&H was stable. On postoperative day 2 his hemoglobin went down to 6.3, hematocrit was 21. He was transfused 2 units of packed red blood cells. He tolerated the transfusion well without any transfusion reaction. Consult was also placed for gastroenterology for evaluation of any GI workup that would be necessary. He was placed on Zosyn and caspofungin as his cultures were positive for pseudomonas aeruginosa and yeast not Yessenia. On postoperative day 2, his dressings of his right foot were also changed by myself and Dr. Vargas. The incision was clean, dry and intact. Dressings were applied. He maintained elevation and heel precautions during his inpatient stay. He does not require a lot of pain medication during his inpatient stay. He did tolerate a regular diet. He also received supplementation through his indwelling PEG tube. His vital signs remained stable during his inpatient stay. His hemoglobin and hematocrit stabilized on postoperative day 3 and remained in the 8/25 range. No further transfusions were necessary. Gastroenterology followed him and decided to further evaluate his chronic anemia as an outpatient. No EGD or colonoscopy was necessary during his inpatient stay as he has had that done recently in the past for his chronic anemia. Dressings were also changed on postoperative day 5. Again the incision was clean, dry and intact. New dressings were applied. A postoperative shoe was ordered. He was allowed to be out of bed to weight-bear as tolerated on his heel with the postop shoe in place for bed to chair transfers only. He also would need a walker to assist with ambulation and transfers. No ambulation further than to stand and pivot to a chair. He was followed during his stay with case management and social worker. [facility] is a resident at [facility] and a bed was held for him to return when medically stable. He continued to be followed by medical service and infectious disease. On postoperative day 5 his cultures were also positive for MRSA. Postoperative day 5 Dr[address] Willams added vancomycin to his treatment regimen for treatment of the MRSA. He was medically stable for discharge on January 22, 2018. He was discharged to [facility] in stable condition. Discharge instructions were provided. Follow-up as scheduled for January 29, [address] Guido Vargas. All questions were answered. Total time spent on discharge = This includes examination of the patient, discharge planning, medication reconciliation, and communication with other providers. Discharge Instructions Discharge Instructions Date of Service January 22, 2018. Admission Reason for Admission: Right Foot Osteomyelitis Discharge Discharge Diagnosis / Problem: Right foot osteomyelitis Discharge Goals Goal(s): Decrease discomfort, Improve function, Increase independence Activity Recommendations Activity Level: OOB In Chair, Assistance Required (walker) Therapies: Physical Therapy, Weight Bearing Status (WBAT Right heel with post op shoe on for transfers only; no ambulation) Weightbearing Status: Left weightbearing (as tolerated) . Additional Information Patient informed of condition: Yes Advance Directives: No DNR: No Level of Care: Skilled Communicable Disease: Yes Prognosis: Stable Fields Catheter: No Instructions / Follow-Up Instructions / Follow-Up DIET: * Resume previous diet. MEDICATIONS: * Please take your prescriptions as instructed at your pre-op appointment and/ or see medication discharge instructions listed above. * If concerns develop, call your physician's office at . SPECIAL CARE INSTRUCTIONS: * Elevate right foot above your heart to relieve swelling. * Keep dressing on right foot at all times. Please do daily dressing changes. Okay to wash with soap and water, pat incision dry, redress with xeroform, 4x4 's, ABD, Rolled gauze and an TRISTAN bandage to above his ankle. * Keep bilateral heels off of bed. * No weight on his right foot. Use walker to assist with ambulation. * Out of bed to chair, transfers only from bed to chair. * Post op shoe when out of bed. * Allowed for full ankle range of motion as tolerated. * Sequential compression devices for DVT prophylaxis. No NSAIDS or anti- platelets, coumadin, lovenox or heparin due to acute on chronic anemia. * Your surgical extremity may be discolored due to prepping agents used on the skin. A bluish-green tint is a normal variant and should not cause alarm. Call your doctor at [phone] if: * Temperature above 101 degrees * Pain not relieved by pain medicine ordered * There is increased drainage or redness from any incision * You have any unanswered questions, problems or concerns. FOLLOW UP VISIT: * If not already scheduled, please call the office at to schedule a follow-up appointment. * You have a follow up appointment on 01/29/18 at 1:45 p.m. * Please call Dr. Willams at Infectious Disease for a follow up appointment in approximately 2 weeks. Call [phone] to schedule appointment. Current Hospital Diet Patient's current hospital diet: Regular Diet Discharge Diet Recommended Diet: Regular Diet (soft) Diet Texture: Mechanical Soft (ground) Procedures Procedures Performed: transmetatarsal amputation Pending Studies Studies pending at discharge: no Physician Orders On Transfer Dressing Changes: Please change dressings every other day, apply xeroform, 4x4's, ABD's, rolled gauze and Tristan bandage. IV Therapy: Caspofungin, zosyn, and vancomycin as ordered through PICC Line right arm Vital Signs: per routine Additional Orders: WBAT on right heel with post op shoe, for transfers only. Use walker to assist with transfers from bed to chair, no full ambulation. OBTAIN WEEKLY CBC, BMP AND VANCO TROUGH WHILE ON IV MEDICATIONS. Medical Emergencies Who to Call and When: Medical Emergencies: If at any time you feel your situation is an emergency, please call 911 immediately. Non-Emergent Contact Non-Emergency issues call your: Surgeon Call Non-Emergent contact if: temperature is above 101, your pain is not controlled, wound has increased drainage, wound has increased redness, wound has increased pain, you have any medication questions "Provider Documentation" section prepared by Dipika Davalos.
--- NOTE | 2018-01-24 07:21 | EDITING REQUIRED CODING QUERY ---
MALNUTRITION To promote full compliance with coding requirements relating to patient care, physician participation is requested in all cases of hims coder uncertainty. Please assist us with the question(s) below: Please place an X within the parenthesis (x). If other, please document: "Malnurished" is documented in this record on the Operative Report. If possible, please check the box that provides a more specific diagnosis: ( ) Mild malnutrition ( ) Moderate malnutrition ( ) Severe malnutrition ( ) Protein malnutrition (kwashiorkor) ( ) Severe protein calorie malnutrition ( xx) Protein calorie malnutrition, unspecified ( ) Other (please specify): Was this diagnosis present on admission? Please place an X within the parenthesis (x). ( xx) Present on admission ( ) Not present on admission ( ) Unable to be clinically determined Thank you Lexus Wetzel
[2018-01-24] MEDS ORDERED: VANCOMYCIN TROUGH ONE (12:30)
== END 2018-01-22 16:40 | DRG 475 ==
LOC: C.ACU 05:13 → C.3E 06:30 → ENRESERV 18:11 → C.3E 01-18 18:48
PROVIDERS: ADMIT Physical Medicine & Rehabilitation Sports Medicine; ATTEND Physical Medicine & Rehabilitation Sports Medicine
PROC: 0Y6M0ZD Detachment at Right Foot, Partial 4th Ray, Open Approach (ICD-10-PCS; principal; 2018-01-17 07:15)
PROC: 0JBQ0ZX Excision of Right Foot Subcutaneous Tissue and Fascia, Open Approach, Diagnostic (ICD-10-PCS; principal; 2018-01-17 07:15)
PROC: 0Y6M0ZF Detachment at Right Foot, Partial 5th Ray, Open Approach (ICD-10-PCS; principal; 2018-01-17 07:15)
PROC: 0Y6M0ZB Detachment at Right Foot, Partial 2nd Ray, Open Approach (ICD-10-PCS; principal; 2018-01-17 07:15)
PROC: 0Y6M0ZC Detachment at Right Foot, Partial 3rd Ray, Open Approach (ICD-10-PCS; principal; 2018-01-17 07:15)
PROC: 0Y6M0Z9 Detachment at Right Foot, Partial 1st Ray, Open Approach (ICD-10-PCS; principal; 2018-01-17 07:15)
DX: M86.171 Other acute osteomyelitis, right ankle and foot (principal); D62 Acute posthemorrhagic anemia; L97.516 Non-pressure chronic ulcer of other part of right foot with bone involvement without evidence of necrosis; L97.518 Non-pressure chronic ulcer of other part of right foot with other specified severity; E46 Unspecified protein-calorie malnutrition; R64 Cachexia; Z68.1 Body mass index [BMI] 19.9 or less, adult; B37.89 Other sites of candidiasis; B95.62 Methicillin resistant Staphylococcus aureus infection as the cause of diseases classified elsewhere; B96.5 Pseudomonas (aeruginosa) (mallei) (pseudomallei) as the cause of diseases classified elsewhere; I73.9 Peripheral vascular disease, unspecified; K21.9 Gastro-esophageal reflux disease without esophagitis; I10 Essential (primary) hypertension; F32.9 Major depressive disorder, single episode, unspecified; R63.6 Underweight; F17.220 Nicotine dependence, chewing tobacco, uncomplicated; Z79.899 Other long term (current) drug therapy; Z93.1 Gastrostomy status

== ENCOUNTER 2018-04-16 05:15 | Day surgery (SDC) | payer OTHER ==
[~2018-04-16 05:15] MED LIST changes: -LINE1TAB6 PEG; +NUTR-673 GT; +[UNRECOGNIZED DRUG - CODE] IV
[2018-04-16] MEDS ORDERED: SODIUM CHLORIDE 0.9% 1000ML IV SCH (06:00)
[2018-04-16] MEDS ORDERED: CEFAZOLIN 1000MG IV PUSH 7.5 ML IV SCH (07:00)
== END 2018-04-16 05:59 | disposition home or self-care (01) ==
LOC: C.ACU 05:15
PROVIDERS: ATTEND Surgery Vascular Surgery
DX: Z90.3 Acquired absence of stomach [part of] (principal); Z53.09 Procedure and treatment not carried out because of other contraindication

== ENCOUNTER 2018-04-30 06:57 | Day surgery (SDC) | payer OTHER ==
[2018-04-30] VITALS (8 sets, daily range): BP systolic 109–130; BP diastolic 56–95; PULSE 58–68; TEMP 36.4–36.7; O2SAT 99–100; Ht 182.9 cm; Wt 65.0 kg
[~2018-04-30] VITALS: Ht 182.9 cm; Wt 65.0 kg
--- NOTE | 2018-04-30 06:02 | History and Physical ---
History & Physical Date of Service Apr 30, 2018. History & Physical CC: Non healing TMA site HPI: Mr Eckert has a long-term nonhealing wound of his right foot transmetatarsal amputation site. He has significant peripheral vascular disease in the right lower extremity. He denies any rest pain in the leg and does not walk far enough or fast enough to claudicate . No other ulcerations of the foot are appreciated. He denies headaches, fevers, chills, dizziness, chest pain, shortness of breath, abdominal pain, nausea, vomiting, diarrhea, constipation, muscle weakness, rest pain, claudication or other complaints. His allergies include no known medication allergies. His home medications are reconciled in the chart and include the following; Carafate, cholestyramine, folic acid, Invanz, linezolid, magnesium oxide, mirtazapine, nitrofurantoin, oseltamivir, potassium chloride, Protonix, sulfamethoxazole/trimethoprim, vancomycin. The patient did have an ultrasound performed at [facility], where he is a current resident, of his right leg. This did not demonstrate any areas of hemodynamically significant stenosis that would be amenable to treatment. He appears to have biphasic flow, and possibly some small vessel disease in the lower leg and foot; however, velocities appear to be acceptable. The patient's past medical history is positive for stomach problems, poor nutrition, kidney disease, chronic indwelling catheter. Past surgical history is positive for gastric tube placement. Family history is positive for heart disease and hypertension in his mother. Social history is positive for tobacco use; the patient uses smokeless tobacco. He has never smoked cigarettes. He denies alcohol or drug use. Review of systems is negative for fatigue, fever, sweats, weight loss, abnormal moles or rashes, vision changes or photophobia, ear pain, sore throat, cough, shortness of breath, hemoptysis, wheezing, abdominal pain, nausea, vomiting, muscle weakness, headaches, dizziness or seizures. On physical exam, his vital signs today were as follows; blood pressure of 96/ 52 with a heart rate of 58. The patient is 182.88 cm tall. Constitutional; in general, the patient is a chronically ill-appearing elderly male in no acute distress. He is thin and frail. His head is normocephalic and atraumatic. Eyes are EOMI. ENMT exam demonstrates no hearing loss, rhinorrhea or pharyngeal erythema. Neck is supple, nontender with a midline trachea without masses or crepitus. Lung exam demonstrates no dyspnea. They are decreased throughout, but clear bilaterally. Cardiovascular exam demonstrates a nondisplaced apical impulse with a regular rate and rhythm without murmurs. Peripheral pulses are full and equal in all extremities unless otherwise noted; specifically, they are normal in his carotid, brachial and left femoral pulse. Right femoral pulse is difficult to palpate due to the patient's current position and his inability to lay flat. Bilateral lower extremity distal pulses are not palpable. He does have capillary refill to his toes. There is no sign of distal ischemia. Abdomen is soft and nontender. Bowel sounds are present. No flank or CVA tenderness is noted. Bilateral upper extremities demonstrate no cyanosis, clubbing or edema. His lower extremities demonstrate what appear to be chronic edema distally, some skin changes consistent with chronic venous insufficiency and a non healing tma site of his right foot. His foot is tender. ASSESSMENT: 1. Nonhealing TMA of the right foot. 2. Peripheral arterial disease. PLAN: Patient is admitted for arteriography with possible intervention. I have discussed the risks options and benefits of the procedure with the patient. The patient understands the risks options and benefits and agrees to the procedure.
[~2018-04-30 06:57] MED LIST changes: +CEFAZOLIN 1000MG IV PUSH 7.5 ML IV SCH; +SODIUM CHLORIDE 0.9% 1000ML 1,000 ML IV SCH
--- NOTE | 2018-04-30 08:00 | History & Physical Bridge Note ---
H&P Re-Evaluation Bridge Note: I have examined the patient, reviewed the History & Physical and in the interval since the performance of the History & Physical I have noted the following changes of clinical significance: No changes noted
--- NOTE | 2018-04-30 08:01 | Pre Sedation Assessment ---
Pre Sedation Assessment General Date of Sedation: Apr 30, 2018. Review Cardiovascular: regular rate, rhythm Lungs: lungs clear Pre-Sedation Airway Assessment Smoking Status: Never Smoker Hx of Sleep Apnea: No Short Thick Neck: No Thyro-mental Distance: > 3 Finger Breadths Oral Cavity: Chipped Teeth Mallampati Classification: Class II ASA Classification: Class III NPO Status Date of Last Intake of Fluids: Apr 29, 2018 Time of Last Intake of Fluids: 2099 Date of Last Intake of Solids: Apr 29, 2018 Time of Last Intake of Solids: 2099 Procedure Planning Contraindications for Sedation: None Current Medications Reviewed: Yes Notes The planned sedation has been discussed with the patient. Informed Consent was obtained. I have identified the patient, determined the appropriateness of sedation and have assessed the patient immediately prior to the procedure. All medicine(s) and interventions are by my order.
[2018-04-30 08:24] LABS: BLOOD UREA NITROGEN 27 mg/dl (7-18); CREATININE 1.06 mg/dl (0.60-1.40)
[2018-04-30] MEDS ORDERED: TRAM-10 PO (08:45)
[2018-04-30] MEDS ORDERED: FENTANYL CITRATE INJ 50 MCG/1 ML 2 ML VIAL ONE (09:33)
[2018-04-30] MEDS ORDERED: MIDAZOLAM HCL 1 MG/ML 2ML VIAL ONE (09:33)
[2018-04-30] MEDS ORDERED: FENTANYL CITRATE INJ 50 MCG/1 ML 2 ML VIAL IV ONE ×2 (10:00→10:18)
[2018-04-30] MEDS ORDERED: MIDAZOLAM HCL 1 MG/ML 2ML VIAL IV ONE ×2 (10:00→10:18)
[2018-04-30] MEDS ORDERED: LIDOCAINE HCL 1% 20 ML VIAL SQ ONE (10:17)
[2018-04-30] MEDS ORDERED: IODIXANOL (VISIPAQUE) 270 MG/ML 150ML FLUSH ONE (10:40)
--- NOTE | 2018-04-30 10:40 | Discharge Instructions ---
Discharge Instructions Date of Service Apr 30, 2018. Visit Reason for Visit: Right Infrapopliteal Artery Occlusive Disease Discharge Discharge Diagnosis / Problem: non healing wound right foot, infrapopliteal artery occlusive disease Discharge Goals Goal(s): Diagnostic testing Activity Recommendations Activity Limitations: per Instructions/Follow-up section Anesthesia . Post Anesthesia Instructions: If you have had General Anesthesia or IV Sedation: * Do not drive today. * Resume driving when surgeon permits. * Do not make important decisions or sign legal documents today. * Call surgeon for: 1. Temperature elevations greater than 101 degrees F. 2. Uncontrollable pain. 3. Excessive bleeding. 4. Persistent nausea and vomiting. 5. Medication intolerance (nausea, vomiting or rash). * For nausea and vomiting use only clear liquids such as: tea, soda, bouillon until nausea subsides, then gradually increase diet as tolerated. * If you have any concerns or questions, call your surgeon's office. If physician is unavailable and it is an emergency, call 911 or go to the nearest emergency room. . Instructions / Follow-Up Instructions / Follow-Up Call [phone] to schedule a follow up appointment if one not already scheduled. SPECIAL CARE INSTRUCTIONS: Medications: * Continue to take your medications as directed. If you have been given a prescription for Plavix, please fill it immediately and take as directed. Incision Care: * Your puncture site may have some bruising and minor swelling for about one week. * You will have a small dressing covering your puncture site. You may remove the dressing after 24 hours and shower. You may let the warm soapy water run over it, but be sure to dry the puncture site well and keep it dry. * DO NOT IMMERSE THE INCISION IN A TUB/POOL/etc. UNTIL HEALED. * Puncture sites should be kept covered with a band-aid until it begins to heal. Restrictions: * Depending on whether you leg or arm was punctured to access the arteries, you will be required to lay flat, hold your arm still, or both, for about 4 hours after the procedure to prevent bleeding. * Limit your activity for the first 48 hours. You may walk and go up and down steps. Avoid excessive bending or movement at the puncture site. Possible Complications: * Excessive Swelling - after blood flow is improved you may notice increased swelling in the lower legs. This is a normal response. This usually depends on the amount of blockages in the leg, how long they have been there prior to your procedure and how much blood flow was restored. Elevating your legs will help to improve this. Please notify our office ([phone] ) if the swelling does not go away after lying in bed overnight. * Infection/Drainage/Bleeding - Drainage or bleeding from the puncture site should be minimal. If you have excessive bleeding or drainage, call our office ([phone]) right away. * Pain - You may experience some mild pain or soreness at your puncture site. If your pain does not improve, please contact our office ([phone]). Call your doctor and seek emergent treatment if you develop: * Temperature above 101 degrees * Any fever or chills * Any redness or purulent drainage from the puncture site * Any new dusky/blue colored toes or feet with coolness or sharp or aching pain. SKIN IRRITATION: * You may experience some redness and/or swelling in the area where radiation was administered. If any skin irritation occurs, please contact your family physician. FOLLOW UP VISIT: Keep any scheduled doctor appointments. Diet Recommendations Recommended Home Diet: resume previous diet Procedures Procedures Performed: Right Lower Extremity Angiogram, Moderate Sedation Pending Studies Studies pending at discharge: no Medical Emergencies . Who to Call and When: Medical Emergencies: If at any time you feel your situation is an emergency, please call 911 immediately. . Non-Emergent Contact Non-Emergency issues call your: Surgeon . . "Provider Documentation" section prepared by Tommie Mack. .
--- NOTE | 2018-04-30 10:50 | [facility] Post Operative Brief Note ---
Immediate Operative Summary Operative Date Apr 30, 2018. Pre-Operative Diagnosis Infrapopliteal Artery Occlusive Disease, Non Healing Wound. Post-Operative Diagnosis Infrapopliteal Artery Occlusive Disease, Non Healing Wound. Procedure(s) Performed Right Lower Extremity Angiogram, Ultrasound localization of left common femoral artery, mechanical closure left femoral artery Moderate Sedation [id number] Mack Blanket Inspector Surgeon(s) Dr. Becki Shah Estimated Blood Loss 5 Findings Consistent with Post-Op Diagnosis Specimens None Drains None Anesthesia Type IV Sedat Cons RN Only Complication(s) none Disposition Accompanied Pt To Recover: no Disposition:
--- NOTE | 2018-04-30 10:50 | [facility] Operative Report ---
Operative Report Operative Date Apr 30, 2018. Pre-Operative Diagnosis Infrapopliteal Artery Occlusive Disease, Non Healing Wound. Post-Operative Diagnosis Infrapopliteal Artery Occlusive Disease, Non Healing Wound. Procedure(s) Performed Right Lower Extremity Angiogram, Ultrasound localization of left common femoral artery, mechanical closure left femoral artery Moderate Sedation [id number] Mack Paleologist Surgeon(s) Dr. Becki Tejada Estimated Blood Loss 5 Specimens None Drains None Anesthesia Type IV Sedat Cons RN Only Complication(s) none Disposition Recovery Room / PACU Indications Mr. Eckert is a 67 year old male with a history of PVD and a nonhealing wound on his right foot. The risks, benefits and alternatives to the procedure were discussed with him and he agreed to proceed. Description of Procedure The patient was brought to the angio suite and placed in the supine position. His bilateral groins were prepped and draped in the typical sterile fashion. He was given preoperative antibiotics. Local anesthesia was administered. His left common femoral artery was accessed under ultrasound guidance. A 5 [place] sheath was placed. A 0.035 Angled glidewire was advanced to the aorta. A Merit rim catheter was advanced and used to access the right common iliac artery. The wire was advanced into the right common femoral artery and the rim catheter was advanced over the wire. The wire was removed. Right lower extremity angiogram was completed which showed three vessel runoff to the foot with infrapopliteal disease in all three vessels not amenable for intervention. The rim catheter was then pulled back and the right iliac arteries were imaged which showed no disease. The catheter and sheath were removed and the Starclose device was used to close the puncture site. Pressure was held and hemostasis was achieved. There were no complications and the patient was brought to the PACU in good condition. Dr. Mack was scrubbed and present for the entire procedure. I attest to the content of the Intraoperative Record and any orders documented therein. Any exceptions are noted below.
--- NOTE | 2018-04-30 10:51 | Post Sedation Assessment ---
Post Sedation Assessment General Date of Sedation Apr 30, 2018. Vital Signs: Vital Signs Past 12 Hours Date Time Temp Pulse Resp B/P (MAP) Pulse Ox O2 Delivery O2 Flow Rate FiO2 04/30/18 08:00 36.7 66 18 109/56 (73) 99 Room Air Post Procedure Recovery Score Activity: (2) Moves 4 extremities * Respiration: (2) Deep breath/cough Circulation: (2) +/-20% PreAnes Value Consciousness: (2) Fully Awake Oxygen Saturation: (2) > 92% On Room Air Post Anesthesia Score: 10 Discharge Sedation Level of Care: Fast Track Phase II Post Sedation Plan On clinical assessment, the patient appears to have tolerated the sedation without complications. Patient is recovering as anticipated. Patient will continue to be monitored by nursing and may be discharged when sedation discharge criteria are met per below protocol. Upon Completions of procedure and additional 15 minutes continue every 5 minute vital signs and the P.A.R. score; then discharge to a Phase I or Fast Track to Phase II per the following guidelines: * Discharge Patient to appropriate Phase II area if PAR is 8 or greater or return to pre- procedure baseline. The post - procedure orders will be as directed. * If PAR score is less than 8 or not return to pre-procedure baseline then patient will follow Phase I monitoring till PAR is reached for Phase II. The Phase I may be done in procedure room or may call to secure a Phase I area. * If naloxone or flumazenil are used for reversal, hold in Phase I for an additional 60 -120 minutes before discharge to Phase II. Please call the Sedation Physician to re-evaluate and complete post-note for discharge to Phase II area. Do NOT discharge from procedure sedation or Phase 1 until post- sedation evaluation note is complete by procedure /sedation MD Sedation Discharge Instructions to be given to the patient at discharge to home.
== END 2018-04-30 13:55 | disposition home or self-care (01) ==
LOC: C.ACU 06:57
PROVIDERS: ATTEND Surgery Vascular Surgery
DX: T81.9XXA Unspecified complication of procedure, initial encounter (principal); Y83.5 Amputation of limb(s) as the cause of abnormal reaction of the patient, or of later complication, without mention of misadventure at the time of the procedure; I77.1 Stricture of artery; I73.9 Peripheral vascular disease, unspecified; Z79.899 Other long term (current) drug therapy; Z82.49 Family history of ischemic heart disease and other diseases of the circulatory system; F17.220 Nicotine dependence, chewing tobacco, uncomplicated